=== PATIENT | female | born 1975 | race Caucasian/White ===

== ENCOUNTER 2016-02-24 20:18 | Emergency (ER) | payer BC ==
[2016-02-24 21:01] VITALS: BP 145/98
--- NOTE | 2016-02-24 21:27 | UC ---
Skin Complaint HPI - HPI Summary HPI Summary: The patient comes in today for: 1. Right lower leg swelling. Onset: 3-4 hours ago. Palliative/provocative: Nothing makes it better or worse. Quality: Ache. Region: Medial and posterior calf. Severity: 02/26 Time: Constant. Associated symptoms: Injury: None. Previous: No previous problems with the right lower leg. Blood clots: None. Cancer: She had thyroid cancer diagnosed in 2008. * - History of Current Complaint Chief Complaint: UCLowerExtremity Time Seen by Provider: 02/24/16 21:11 Stated Complaint: BUMP ON CALF,KNEE PAIN Hx Obtained From: Patient Hx Last Menstrual Period: 1 WEEK AGO ?: No - Allergy/Home Medications Allergies/Adverse Reactions: Allergies Allergy/AdvReac Type Severity Reaction Status Date / Time Tofacitinib [From Xeljanz] Allergy Severe HIVES, Verified 02/24/16 21:01 DIARRHEA Sulfamethoxazole Allergy Hives Verified 02/24/16 21:01 w/Trimethoprim [From Bactrim] Home Medications: Home Medications Amitriptyline TAB* [Elavil TAB*] 50 mg PO DAILY 02/24/16 [History Confirmed 09/02] Dextromethorphan-Phenylephrine [Vicks Dayquil Cold & Flu 10-5-325 mg/15Ml] PRN 02/24/16 [History] predniSONE TAB* [Deltasone TAB*] 10 mg PO BID 02/24/16 [History Confirmed ] Review of Systems Constitutional: Negative Skin: Negative Eyes: Negative ENT: Negative Respiratory: Negative Cardiovascular: Negative Gastrointestinal: Negative Genitourinary: Negative Musculoskeletal: Calf Tenderness, Myalgia All Other Systems Reviewed And Are Negative: Yes PMH/Surg Hx/FS Hx/Imm Hx Previously Healthy: No - Fibromyalgia, rheumatoid arthritis, thyroid cancer. Endocrine History Of: Reports: Thyroid Disease - Thyroidectomy Denies: Diabetes, Hyperthyroidism, Hypothyroidism, Dyslipidemia Cardiovascular History Of: Denies: Cardiac Disorders, Hypertension, Pacemaker/ICD, Myocardial Infarction , Congestive Heart Failure, Atrial Fibrillation, Deep Vein Thrombosis, Bleeding Disorders Respiratory History Of: Denies: COPD, Asthma, Bronchitis, Pneumonia, Pulmonary Embolism GI/ History Of: Denies: Gastroesophageal Reflux, Ulcer, Gastrointestinal Bleed, Gall Bladder Disease, Kidney Stones, Diverticulitis, Renal Disease, Urosepsis Neurological History Of: Denies: TIA, CVA, Dementia, Seizures, Migraine Psychological History Of: Denies: Anxiety, Depression, Bipolar Disorder, Schizophrenia, Post Traumatic Stress Disorder Cancer History Of: Denies: Lung Cancer, Colorectal Cancer, Breast Cancer, Prostate Cancer, Cervical Cancer Other History Of: Negative For: HIV, Hepatitis B, Hepatitis C, Anticoagulant Therapy - Surgical History Surgical History: Yes Surgery Procedure, Year, and Place: Rt SHOULDER. THYROIDECTOMY - Family History Known Family History: Positive: Cardiac Disease, Hypertension - Social History Occupation: Employed Full-time Alcohol Use: Occasionally Substance Use Type: None Smoking Status (MU): Never Smoked Tobacco Physical Exam Triage Information Reviewed: Yes Appearance: Well-Appearing, No Pain Distress, Well-Nourished Vital Signs: Initial Vital Signs Temp 97.7 F 02/24/16 20:52 Pulse 129 02/24/16 20:52 Resp 18 02/24/16 20:52 BP 145/98 02/24/16 20:52 Pulse Ox 96 02/24/16 20:52 Vital Signs Reviewed: Yes Eyes: Positive: Conjunctiva Clear. Negative: Discharge ENT: Positive: Hearing grossly normal. Negative: Pharyngeal erythema, Nasal congestion, Nasal drainage, TM bulging, TM dull, TM red, Tonsillar swelling, Tonsillar exudate Dental: Negative: Gross Decay/Caries @, Dental Fracture @ Neck: Positive: Supple, Nontender, No Lymphadenopathy. Negative: Nuchal Rigidity Respiratory: Positive: Lungs clear, No respiratory distress, No accessory muscle use. Negative: Crackles, Wheezing Cardiovascular: Positive: RRR, No Murmur Abdomen Description: Positive: Nontender, No Organomegaly. Negative: Distended , Guarding Musculoskeletal: Positive: Strength Intact, ROM Intact, Other: - Right calf: She has swelling and tenderness of the medial calf. She also has pain in the posterior right calf, but most of the pain is of the medial calf. She also has some posterior right knee tenderness with palpation and upper right inner thigh pain. Calf circumference at 24 cm superior to the medial malleolus: Right: 42 cm Left: 40 Neurological: Positive: Alert, Muscle Tone Normal Psychological: Positive: Age Appropriate Behavior, Consolable Skin: Negative: rashes, breakdown Course/Dx - Course Course Of Treatment: Patient was told that I was concerned that she may have a DVT, but since we don't have ultrasound, she would have to go to the ER for evaluation. She agreed, but by private car. - Diagnoses Provider Diagnoses: right calf tenderness, swelling. - Physician Notification/Consults Discussed Patient Care With: Dr. Hair Time Discussed With Above Provider: 21:44 Discharge - Discharge Plan Condition: Stable Disposition: AGAINST MEDICAL ADVICE Additional Instructions: The patient was told to go directly to the ER.
== END 2016-02-24 21:53 | disposition left against medical advice (07) ==
LOC: UCEAST 20:18
DX: R60.0 Localized edema (principal); M79.661 Pain in right lower leg; Z88.2 Allergy status to sulfonamides; Z88.8 Allergy status to other drugs, medicaments and biological substances
CPT/HCPCS: 99212; G0463

== ENCOUNTER 2016-02-24 22:03 | Emergency (ER) | payer BC ==
--- NOTE | 2016-02-24 22:19 | ED ---
Lower Extremity - HPI Summary HPI Summary: Patient presented to [facility] with swelling in her right calf that she noticed today. She does not remember any trauma to the calf, and she says it's uncomfortable but not necessarily painful. She notices it most when she is on her tiptoes. She denies warmth, redness, SOB, CP or dizziness. She recently had one of her RA medications changed and feels like she's had some side effects but doesn't know if this is related. She has had a cold with congestion. No fever, or N/T. No previous blood clots, smoking or BC. - History of Current Complaint Chief Complaint: EDExtremityLower Stated Complaint: XFER FROM EAST Time Seen by Provider: 02/24/16 22:12 Hx Obtained From: Patient Hx Last Menstrual Period: 1 WEEK AGO Mechanism Of Injury: Unknown Onset of Pain: Hours Onset/Duration: Still Present Severity Initially: Mild Severity Currently: Mild Pain Intensity: 0 Timing: Constant Location: Is Discrete @ - right medial mid calf Character Of Pain: Dull Associated Signs And Symptoms: Positive: Swelling Aggravating Factor(s): Other - going up on her toes Alleviating Factor(s): Rest Able to Bear Weight: Yes - Allergies/Home Medications Allergies/Adverse Reactions: Allergies Allergy/AdvReac Type Severity Reaction Status Date / Time Tofacitinib [From Xeljanz] Allergy Severe HIVES, Verified 02/24/16 21:01 DIARRHEA Sulfamethoxazole Allergy Hives Verified 02/24/16 21:01 w/Trimethoprim [From Bactrim] PMH/Surg Hx/FS Hx/Imm Hx Endocrine/Hematology History: Reports: Hx Thyroid Disease - Thyroidectomy Denies: Hx Anticoagulant Therapy, Hx Diabetes Cardiovascular History: Denies: Hx Congestive Heart Failure, Hx Deep Vein Thrombosis, Hx Hypertension , Hx Myocardial Infarction, Hx Pacemaker/ICD Respiratory History: Denies: Hx Asthma, Hx Chronic Obstructive Pulmonary Disease (COPD), Hx Lung Cancer, Hx Pneumonia, Hx Pulmonary Embolism GI History: Denies: Hx Gall Bladder Disease, Hx Gastrointestinal Bleed, Hx Ulcer, Hx Urosepsis History: Denies: Hx Kidney Stones, Hx Renal Disease Musculoskeletal History: Reports: Hx Rheumatoid Arthritis Denies: Hx Osteoporosis Sensory History: Denies: Hx Hearing Aid Neurological History: Denies: Hx Dementia, Hx Migraine, Hx Seizures, Hx Transient Ischemic Attacks (TIA) Psychiatric History: Denies: Hx Anxiety, Hx Depression, Hx Panic Disorder, Hx Schizophrenia, Hx Bipolar Disorder - Cancer History Cancer Type, Location and Year: THYROID - REMOVED Hx Chemotherapy: No Hx Radiation Therapy: No - Surgical History Surgery Procedure, Year, and Place: Rt SHOULDER. THYROIDECTOMY Infectious Disease History: No Infectious Disease History: Denies: Traveled Outside the [place] in Last 30 Days - Family History Known Family History: Positive: None, Cardiac Disease, Hypertension - Social History Occupation: Employed Full-time Lives: With Family Alcohol Use: Occasionally Substance Use Type: Reports: None Smoking Status (MU): Never Smoked Tobacco Review of Systems Negative: Fever Negative: Erythema Negative: Chest Pain Negative: Shortness Of Breath Positive: Myalgia, Edema - right calf. Negative: Decreased ROM All Other Systems Reviewed And Are Negative: Yes Physical Exam Triage Information Reviewed: Yes Vital Signs On Initial Exam: Initial Vitals Temp Pulse Resp BP Pulse Ox 97.4 F 114 16 154/90 100 02/24/16 22:05 02/24/16 22:05 02/24/16 22:05 02/24/16 22:05 02/24/16 22:05 Vital Signs Reviewed: Yes Appearance: Positive: Well-Appearing, No Pain Distress, Obese Skin: Positive: Warm, Skin Color Reflects Adequate Perfusion, Dry, Soft Head/Face: Positive: Normal Head/Face Inspection Eyes: Positive: EOMI, ISABELLA, Conjunctiva Clear Respiratory/Lung Sounds: Positive: Breath Sounds Present Cardiovascular: Positive: Tachycardia Musculoskeletal: Positive: Strength/ROM Intact - 5/5 strength with ankle flex/ extension, Pain @ - mild TTP over right mid medial calf, Edema Right - right calf measures 18.25 inches, left calf measures 16.75 Neurological: Positive: Sensory/Motor Intact, Alert, Oriented to Person Place, Time, NV Bundle Intact Distally, Abnormal Gait - mildly antalgic gait Psychiatric: Positive: Affect/Mood Appropriate AVPU Assessment: Alert Diagnostics - Vital Signs Vital Signs Temp Pulse Resp BP Pulse Ox 02/24/16 22:05 97.4 F 114 16 154/90 100 - Laboratory Lab Statement: Any lab studies that have been ordered have been reviewed, and results considered in the medical decision making process. - Ultrasound No standard instances Ultrasound Interpretation: Positive (See Comments) Ultrasound Interpretation Completed By: Radiologist - 14.2 x 5 x 3.5cm area of loculated fluid Lower Extremity Course/Dx - Diagnoses Differential Diagnosis/HQI/PQRI: Positive: Arthritis, Bursitis, Cellulitis, Contusion, DVT, Gout, Phlebitis, Puncture Wound, Sprain, Strain Provider Diagnoses: Swelling of calf - Physician Notifications Discussed Care of Patient With: Dr. Contreras, ED attending. Discharge - Discharge Plan Condition: Stable Disposition: HOME Patient Education Materials: Leg Edema (ED) Referrals: Sena Santana MD [Primary Care Provider] - Additional Instructions: Please follow-up with your primary care provider this week for evaluation and possible referral to a specialist. To reduce swelling, elevate your leg above your heart, ice and apply compression with an lucien bandage. You can reduce swelling with ibuprofen as well. Return to the emergency department if your symptoms worsen.
--- NOTE | 2016-02-24 22:48 | RAD ---
HISTORY: Right calf swelling COMPARISONS: None relevant TECHNIQUE: Multiple transverse and longitudinal ultrasound images were obtained of the right lower extremity from the level of the common femoral vein inferiorly through to the infrapopliteal veins using grayscale, color Doppler, and spectral Doppler imaging with and without compression and with augmentation. Comparison images were obtained of the contralateral common femoral vein. FINDINGS: VEINS: The venous system of the right lower extremity is compressible throughout its course, with normal flow on color Doppler imaging and normal response to augmentation on spectral Doppler imaging. SOFT TISSUES: Unremarkable. OTHER FINDINGS: None. IMPRESSION: NO RIGHT LOWER EXTREMITY DEEP VEIN THROMBOSIS
--- NOTE | 2016-02-24 23:01 | RAD ---
HISTORY: Lump on leg COMPARISONS: None TECHNIQUE: Multiple transverse and longitudinal ultrasound images were obtained of the right medial calf in the area of palpable abnormality using grayscale and color Doppler imaging. FINDINGS: There is a heterogeneously hypoechoic lobulated collection deep to the subcutaneous fascia along the area of palpable abnormality measuring 14.2 x 5 x 3.5 cm in size. There is no internal vascularity. IMPRESSION: LOBULATED 14.2 CM COLLECTION OF THE AREA OF PALPABLE ABNORMALITY. THIS MAY REPRESENT A COMPLEX FLUID COLLECTION, SUCH A HEMATOMA, VERSUS A SOLID LESION. IN THE ABSENCE OF A HISTORY OF TRAUMA, CONSIDER FURTHER EVALUATION WITH TISSUE SAMPLING.
[2016-02-24 23:30] VITALS: BP 127/76
== END 2016-02-24 23:29 | disposition home or self-care (01) ==
LOC: ED 22:03
DX: R60.0 Localized edema (principal); Z88.2 Allergy status to sulfonamides; Z88.8 Allergy status to other drugs, medicaments and biological substances
CPT/HCPCS: 99282

== ENCOUNTER 2016-06-29 10:13 | Emergency (ER) | payer BC ==
[2016-06-29 11:30] VITALS: BP 151/98
--- NOTE | 2016-06-29 11:42 | UC ---
Abdominal Pain Female HPI - HPI Summary HPI Summary: 2 and 1/2 weeks of a "car sick nauseated feeling" that Zofran does not help--- was able to eat a bagel and gingerale this morning---has also been constipated for 10 days---no fevers---did have an endoscopy that showed gastritis (began Prilosec) Has had a hida scan in the past that was (-) for gal stones - History of Current Complaint Chief Complaint: UCGI Stated Complaint: NAUSEA Time Seen by Provider: 06/29/16 11:21 Hx Obtained From: Patient Hx Last Menstrual Period: 2 1/2 WEEKS AGO ?: No Onset/Duration: Gradual Onset, Lasting Weeks, Still Present, Worse Since - today Timing: Constant Severity Initially: Moderate Severity Currently: Moderate Pain Intensity: 7 Pain Scale Used: 0-10 Numeric Location: Discrete At: RUQ, Epigastric Radiates: No Character: Colicy, Cramping Aggravating Factor(s): Nothing Alleviating Factor(s): Nothing Associated Signs and Symptoms: Positive: Constipation, Nausea Allergies/Adverse Reactions: Allergies Allergy/AdvReac Type Severity Reaction Status Date / Time Tofacitinib [From Xeljanz] Allergy Severe HIVES, Verified 06/29/16 11:21 DIARRHEA Sulfamethoxazole Allergy Hives Verified 06/29/16 11:21 w/Trimethoprim [From Bactrim] PMH/Surg Hx/FS Hx/Imm Hx Previously Healthy: No - RA Endocrine History Of: Reports: Hypothyroidism Denies: Diabetes, Thyroid Disease, Hyperthyroidism, Dyslipidemia Cardiovascular History Of: Denies: Cardiac Disorders, Hypertension, Pacemaker/ICD, Myocardial Infarction , Congestive Heart Failure, Atrial Fibrillation, Deep Vein Thrombosis, Bleeding Disorders Respiratory History Of: Denies: COPD, Asthma, Bronchitis, Pneumonia, Pulmonary Embolism GI/ History Of: Denies: Gastroesophageal Reflux, Ulcer, Gastrointestinal Bleed, Gall Bladder Disease, Kidney Stones, Diverticulitis, Renal Disease, Urosepsis Neurological History Of: Denies: TIA, CVA, Dementia, Seizures, Migraine Psychological History Of: Denies: Anxiety, Depression, Bipolar Disorder, Schizophrenia, Post Traumatic Stress Disorder Cancer History Of: Denies: Lung Cancer, Colorectal Cancer, Breast Cancer, Prostate Cancer, Cervical Cancer Other History Of: Negative For: HIV, Hepatitis B, Hepatitis C, Anticoagulant Therapy - Surgical History Surgical History: Yes Surgery Procedure, Year, and Place: Rt SHOULDER. THYROIDECTOMY. ACID REFLUX - Family History Known Family History: Positive: None, Cardiac Disease, Hypertension - Social History Occupation: Employed Full-time Lives: With Family Alcohol Use: Occasionally Substance Use Type: None Smoking Status (MU): Never Smoked Tobacco Review of Systems Constitutional: Negative Skin: Negative Eyes: Negative ENT: Negative Respiratory: Negative Cardiovascular: Negative Gastrointestinal: Abdominal Pain Genitourinary: Negative Motor: Negative Neurovascular: Negative Musculoskeletal: Negative Neurological: Negative Psychological: Negative All Other Systems Reviewed And Are Negative: Yes Physical Exam Triage Information Reviewed: Yes Appearance: Ill-Appearing, Pain Distress, Obese Vital Signs: Initial Vital Signs Temp 97.0 F 06/29/16 11:23 Pulse 104 06/29/16 11:23 Resp 18 06/29/16 11:23 BP 151/98 06/29/16 11:23 Pulse Ox 97 06/29/16 11:23 Vital Signs Reviewed: Yes Eye Exam: Normal Eyes: Positive: Conjunctiva Clear ENT Exam: Normal ENT: Positive: Normal ENT inspection, Hearing grossly normal, Pharynx normal, TMs normal. Negative: Nasal congestion, Nasal drainage, Tonsillar swelling, Tonsillar exudate, Trismus, Muffled/hoarse voice Dental Exam: Normal Neck exam: Normal Neck: Positive: Supple, Nontender, No Lymphadenopathy Respiratory Exam: Normal Respiratory: Positive: Chest non-tender, Lungs clear, Normal breath sounds, No respiratory distress, No accessory muscle use Cardiovascular Exam: Normal Cardiovascular: Positive: No Murmur, Pulses Normal, Brisk Capillary Refill, Tachycardia Abdominal Exam: Normal Abdomen Description: Positive: Soft, Other: - RUG and mid epigastric pain Bowel Sounds: Positive: Hypoactive Musculoskeletal Exam: Normal Musculoskeletal: Positive: Strength Intact, ROM Intact, No Edema Neurological Exam: Normal Neurological: Positive: Alert, Muscle Tone Normal Psychological Exam: Normal Skin Exam: Normal Abd Pain Female Course/Dx - Course Course Of Treatment: NPO transfer to [facility] – [place], [place] - Differential Dx/Diagnosis Differential Diagnosis: Bowel Obstruction, Constipation, Gall Bladder Disease Provider Diagnoses: Adbominal PAin - Physician Notification/Consults Discussed Patient Care With: Dimitris HUGGINS Time Discussed With Above Provider: 11:45 Instructed by Provider To: Transfer Discharge - Discharge Plan Condition: Guarded Disposition: AGAINST MEDICAL ADVICE Referrals: Sena Santana MD [Primary Care Provider] -
== END 2016-06-29 11:42 | disposition left against medical advice (07) ==
LOC: UCEAST 10:13
DX: R10.9 Unspecified abdominal pain (principal); E03.9 Hypothyroidism, unspecified; Z88.3 Allergy status to other anti-infective agents
CPT/HCPCS: 99212; G0463

== ENCOUNTER 2016-06-29 12:11 | Emergency (ER) | payer BC ==
[2016-06-29] MEDS ORDERED: NS 0.9% 1000 ML* 1,000 ML IV ONE (13:27)
[2016-06-29] MEDS ORDERED: Metoclopramide IV* 5 MG/ML 2 ML VIAL IV ONE (13:27)
[2016-06-29 14:03] LABS: Hematocrit 41 % (35-47); Hemoglobin 13.4 g/dl (12.0-16.0); Mean Corpuscular HGB Conc 33 g/dl (31-36); Mean Corpuscular Hemoglobin 28 pg (27-31); Mean Corpuscular Volume 85 fL (80-97); Mean Platelet Volume 7 um3 (7.4-10.4); Red Blood Count 4.77 10^6/ul (4.0-5.4); Red Cell Distribution Width 16 % (10.5-15); White Blood Count 18.2 10^3/ul (3.5-10.8)
[2016-06-29 14:11] LABS: Urine Bacteria 1+ (Absent)
[2016-06-29 14:17] LABS: Urine Bilirubin Negative (Negative); Urine Glucose Negative (Negative); Urine Nitrite Negative (Negative)
[2016-06-29 14:20] LABS: ALT 16 U/L (7-52); AST 13 U/L (13-39); Alkaline Phosphatase 59 U/L (34-104); Amylase 38 U/L (29-103); Anion Gap 6 mmol/L (2-11); BUN/Creatinine Ratio 8.5 (8-20); Blood Urea Nitrogen 6 mg/dL (6-24); C Reactive Protein 18.76 mg/L (< 5.00); CO2 Carbon Dioxide 27 mmol/L (22-32); Calcium 9.2 mg/dL (8.6-10.3); Chloride 102 mmol/L (101-111); EGFR African American 116.7 (>60); EGFR Non-African American 90.7 (>60); Globulin 3.5 g/dL (2-4); Glucose 111 mg/dL (70-100); Lipase 39 U/L (11.0-82.0); Potassium 3.7 mmol/L (3.5-5.0); Sodium 135 mmol/L (133-145); Total Protein 7.5 g/dL (6.4-8.9)
[2016-06-29 14:22] LABS: Troponin I 0.01 ng/mL (<0.04)
--- NOTE | 2016-06-29 14:23 | ED ---
Abdominal Pain/Female - HPI Summary HPI Summary: Patient is referred to the ED from [facility] for RUQ pain for approximately 2.5 weeks and new onset of nausea the past two days. She took Zofran this AM with minimal relief. She has been evaluated by her PCP x 2 and undergone upper endoscopy with GI three days ago without acute findings. She has lost 5 pounds since the onset of her pain. She is drinking but not eating. Food makes her symptoms mildly better for a short time. She was given a PPI from her GI doctor but has not begun taking the medication. She is constipated but denies fever, chills, vomiting, diarrhea or back pain. No SOB or CP. - History of Current Complaint Chief Complaint: EDAbdPain Stated Complaint: NAUSEA COMMING FROM [facility] Time Seen by Provider: 06/29/16 13:02 Hx Obtained From: Patient, Family/Safety Compliance Specialist Hx Last Menstrual Period: 2 1/2 WEEKS AGO ?: No Onset/Duration: Gradual Onset Timing: Constant Severity Initially: Mild Severity Currently: Moderate Pain Intensity: 2 Location: Discrete At: RUQ - mild Radiates: No Character: Dull Aggravating Factor(s): Nothing Alleviating Factor(s): Nothing Associated Signs and Symptoms: Positive: Constipation, Decreased Appetite, Nausea Allergies/Adverse Reactions: Allergies Allergy/AdvReac Type Severity Reaction Status Date / Time Tofacitinib [From Xeljanz] Allergy Severe HIVES, Verified 06/29/16 11:21 DIARRHEA Sulfamethoxazole Allergy Hives Verified 06/29/16 11:21 w/Trimethoprim [From Bactrim] PMH/Surg Hx/FS Hx/Imm Hx Endocrine/Hematology History: Denies: Hx Anticoagulant Therapy, Hx Diabetes, Hx Thyroid Disease Cardiovascular History: Denies: Hx Congestive Heart Failure, Hx Deep Vein Thrombosis, Hx Hypertension , Hx Myocardial Infarction, Hx Pacemaker/ICD Respiratory History: Denies: Hx Asthma, Hx Chronic Obstructive Pulmonary Disease (COPD), Hx Lung Cancer, Hx Pneumonia, Hx Pulmonary Embolism GI History: Reports: Hx Gastroesophageal Reflux Disease Denies: Hx Gall Bladder Disease, Hx Gastrointestinal Bleed, Hx Ulcer, Hx Urosepsis History: Denies: Hx Kidney Stones, Hx Renal Disease Musculoskeletal History: Reports: Hx Rheumatoid Arthritis Denies: Hx Osteoporosis Sensory History: Denies: Hx Hearing Aid Neurological History: Denies: Hx Dementia, Hx Migraine, Hx Seizures, Hx Transient Ischemic Attacks (TIA) Psychiatric History: Denies: Hx Anxiety, Hx Depression, Hx Panic Disorder, Hx Schizophrenia, Hx Bipolar Disorder - Cancer History Cancer Type, Location and Year: THYROID - REMOVED Hx Chemotherapy: No Hx Radiation Therapy: No - Surgical History Surgery Procedure, Year, and Place: Rt SHOULDER. THYROIDECTOMY. ACID REFLUX Infectious Disease History: Denies: Hx Hepatitis, Hx Human Immunodeficiency Virus (HIV), History Other Infectious Disease, Traveled Outside the [place] in Last 30 Days - Family History Known Family History: Positive: None, Cardiac Disease, Hypertension - Social History Occupation: Employed Full-time Lives: With Family Alcohol Use: Occasionally Substance Use Type: Reports: None Smoking Status (MU): Never Smoked Tobacco Review of Systems Negative: Fever, Chills Negative: Chest Pain Negative: Shortness Of Breath, Cough Positive: Abdominal Pain, Nausea. Negative: Vomiting, Diarrhea Positive: no symptoms reported Negative: Myalgia Negative: Rash, Bruising Negative: Headache All Other Systems Reviewed And Are Negative: Yes Physical Exam Triage Information Reviewed: Yes Vital Signs On Initial Exam: Initial Vitals Temp Pulse Resp BP Pulse Ox 97.1 F 110 20 152/78 98 06/29/16 12:13 06/29/16 12:13 06/29/16 12:13 06/29/16 12:13 06/29/16 12:13 Vital Signs Reviewed: Yes Appearance: Positive: Well-Appearing, Pain Distress, Obese Skin: Positive: Warm, Skin Color Reflects Adequate Perfusion, Dry, Soft Head/Face: Positive: Normal Head/Face Inspection Eyes: Positive: EOMI, ISABELLA, Conjunctiva Clear ENT: Positive: Hearing grossly normal Neck: Positive: Supple, Nontender, No Lymphadenopathy Respiratory/Lung Sounds: Positive: Clear to Auscultation, Breath Sounds Present Cardiovascular: Positive: Tachycardia Abdomen Description: Positive: Soft. Negative: Nontender - TTP RUQ and epigastric region, CVA Tenderness (R), CVA Tenderness (L), Distended, Guarding, McBurney's Point Tenderness Bowel Sounds: Positive: Hypoactive Musculoskeletal: Negative: Edema Left, Edema Right Neurological: Positive: Sensory/Motor Intact, Alert, Oriented to Person Place, Time, NV Bundle Intact Distally, Normal Gait Psychiatric: Positive: Affect/Mood Appropriate AVPU Assessment: Alert - Rebel Coma Scale Coma Scale Total: 15 Diagnostics - Vital Signs Vital Signs Temp Pulse Resp BP Pulse Ox 06/29/16 13:38 97.1 F 110 20 152/78 100 06/29/16 12:13 97.1 F 110 20 152/78 98 - Laboratory Lab Results: Lab Results 06/29/16 06/29/16 Range/Units 13:50 13:50 WBC 18.2 H (3.5-10.8) 10^3/ul RBC 4.77 (4.0-5.4) 10^6/ul Hgb 13.4 (12.0-16.0) g/dl Hct 41 (35-47) % MCV 85 (80-97) fL MCH 28 (27-31) pg MCHC 33 (31-36) g/dl RDW 16 H (10.5-15) % Plt Count 344 (150-450) 10^3/ul MPV 7 L (7.4-10.4) um3 Neut % (Auto) 86.1 H (38-83) % Lymph % (Auto) 8.3 L (25-47) % [place] % (Auto) 5.2 (1-9) % Eos % (Auto) 0.1 (0-6) % Baso % (Auto) 0.3 (0-2) % Absolute Neuts (auto) 15.7 H (1.5-7.7) 10^3/ul Absolute Lymphs (auto) 1.5 (1.0-4.8) 10^3/ul Absolute Monos (auto) 0.9 H (0-0.8) 10^3/ul Absolute Eos (auto) 0 (0-0.6) 10^3/ul Absolute Basos (auto) 0 (0-0.2) 10^3/ul Absolute Nucleated RBC 0.01 10^3/ul Nucleated RBC % 0 Urine Color Pending Urine Appearance Pending Urine pH Pending Ur Specific [place] Pending Urine Protein Pending Urine Ketones Pending Urine Blood Pending Urine Nitrate Pending Urine Bilirubin Pending Urine Urobilinogen Pending Ur Leukocyte Esterase Pending Urine WBC (Auto) Trace(0-5/hpf) (Absent) Urine RBC (Auto) Absent (Absent) Ur Squamous Epith Cells Present H (Absent) Urine Bacteria 1+ H (Absent) Urine Glucose Pending Urine Ascorbic Acid Pending Result Diagrams: 06/29/16 13:50 06/29/16 13:50 Lab Statement: Any lab studies that have been ordered have been reviewed, and results considered in the medical decision making process. - CT No standard instances CT Interpretation: No Acute Changes CT Interpretation Completed By: Radiologist Re-Evaluation - Re-Evaluation First Eval Re-Evaluation Time: 14:30 Change: Improved - decrease in nausea with reglan Second Eval Re-Evaluation Time: 15:15 Change: Improved - the patient had a bowel movement Abdominal Pain Fem Course/Dx - Course Course Of Treatment: Patient's labs and imaging were reviewed from her previous visits. Her results from today were reveiwed with Dr. Kirby. I discussed today' s findings with the patient and her mother, and offered repeat ultrasound of her gall bladder, surgical consult or watchful waiting. The patient decided for watchful waiting. She understands to return to the emergency department if symptoms worsen. Otherwise she will be in touch with her tool drawing checker in two days regarding todays visit. - Diagnoses Differential Diagnosis: Positive: Bowel Obstruction, Constipation, Gall Bladder Disease, Hepatitis, Pancreatitis, Peptic Ulcer Disease, Urinary Tract Infection Provider Diagnoses: Nausea, Abdominal pain - Provider Notifications Discussed Care Of Patient With: Dr. Kirby, ED attending. Discharge - Discharge Plan Condition: Stable Disposition: HOME Prescriptions: Metoclopramide TAB* [Reglan TAB*] 10 mg PO DAILY PRN #15 tab PRN Reason: Nausea Ondansetron ODT TAB* [Zofran 4 MG Odt TAB*] 4 mg PO Q6H PRN #20 tab.odt PRN Reason: Nausea Patient Education Materials: Acute Nausea and Vomiting (ED), Abdominal Pain (ED ) Referrals: Sena Santana MD [Primary Care Provider] - Additional Instructions: Please take one Reglan tab nightly for nausea. Use Zofran for nausea not controlled by the Reglan. Drink extra fluids and eat well. Call your G.I. specialist Friday to discuss today's visit. Return to the emergency department if you develop a fever of 100.4 or greater, or symptoms worsen.
[2016-06-29] MEDS ORDERED: Iohexol 300* (CONTRAST) 10 ML SDV IV ONE (14:29)
--- NOTE | 2016-06-29 14:58 | RAD ---
INDICATION: Right upper quadrant and periumbilical pain and nausea. COMPARISON: There are no prior studies available for comparison. TECHNIQUE: A CT scan of the abdomen and pelvis was performed with intravenous and oral contrast following intravenous injection of 127 ml of Omnipaque 300 nonionic contrast. Contiguous axial sections were obtained from the lung bases through the symphysis pubis. Images were reconstructed in the coronal and sagittal planes. FINDINGS: There is mild atelectasis and cystic change present at the right lung base. No pleural effusion is present. The liver and spleen are normal in size. The liver is decreased in attenuation consistent with fatty infiltration. There is a small 0.4 cm hypodense lesion in the posterior segment of the right hepatic lobe which is too small to characterize by CT although likely represents a cyst. No calcified gallstones are seen. The pancreas appears to be within normal limits. The kidneys and adrenal glands are normal in size. No hydronephrosis is seen. There is a 2.5 cm cyst in the lower pole of the right kidney. The aorta is normal in caliber and demonstrates homogeneous contrast opacification. No significant enlarged retroperitoneal lymph nodes are seen. The stomach, small and large bowel appear nondistended. The appendix is within normal limits. There is mild to moderate descending and sigmoid diverticulosis. There is no evidence for diverticulitis or colitis. The uterus is mildly enlarged with several small masses most consistent with leiomyomas. No free intraperitoneal air or fluid is seen. No significant focal osseous abnormality is seen. IMPRESSION: 1. NO EVIDENCE FOR ACUTE FINDING OR CAUSE FOR THE PATIENT'S ABDOMINAL PAIN IS SEEN. 2. HEPATIC STEATOSIS. 3. MILDLY ENLARGED FIBROID UTERUS.
[2016-06-29 16:50] VITALS: BP 127/84
== END 2016-06-29 16:49 | disposition home or self-care (01) ==
LOC: ED 12:11
DX: R10.11 Right upper quadrant pain (principal); K59.00 Constipation, unspecified; R11.0 Nausea
CPT/HCPCS: 36415; 74177; 80053; 81003; 81015; 82150; 83605; 83690; 84484; 84702; 85025; 86140; 87086; 96374; 99282; Q9967

== ENCOUNTER 2016-10-10 18:25 | Emergency (ER) | payer BC ==
--- NOTE | 2016-10-10 18:41 | UC ---
Abdominal Pain Female HPI - HPI Summary HPI Summary: 41 YEAR OLD FEMALE PRESENTS WITH COMPLAINS OF SEVERE ABDOMINAL PAIN, NAUSEA, AND VOMITING. I WILL SEND HER TO THE ER TO RULE OUT OBSTRUCTION. - History of Current Complaint Chief Complaint: UCAbdominalPain Stated Complaint: ABD PAIN Time Seen by Provider: 10/10/16 18:37 Hx Obtained From: Patient Hx Last Menstrual Period: September 09 Onset/Duration: Sudden Onset Severity Initially: Moderate Severity Currently: Moderate Pain Scale Used: 0-10 Numeric - 8 Location: Diffuse Character: Cramping, Dull, Sharp Alleviating Factor(s): Vomiting Allergies/Adverse Reactions: Allergies Allergy/AdvReac Type Severity Reaction Status Date / Time Tofacitinib [From Xeljanz] Allergy Severe HIVES, Verified 10/10/16 19:56 DIARRHEA Sulfamethoxazole Allergy Hives Verified 10/10/16 19:56 w/Trimethoprim [From Bactrim] PMH/Surg Hx/FS Hx/Imm Hx Previously Healthy: Yes Other History Of: Negative For: HIV, Hepatitis B, Hepatitis C, Anticoagulant Therapy - Surgical History Surgical History: Yes Surgery Procedure, Year, and Place: Rt SHOULDER. THYROIDECTOMY. ACID REFLUX - Family History Known Family History: Positive: None, Cardiac Disease, Hypertension - Social History Alcohol Use: Occasionally Substance Use Type: None Smoking Status (MU): Never Smoked Tobacco Review of Systems Constitutional: Negative Skin: Negative Eyes: Negative ENT: Negative Respiratory: Negative Cardiovascular: Negative Gastrointestinal: Abdominal Pain Genitourinary: Negative Motor: Negative Neurovascular: Negative Neurological: Negative Psychological: Negative All Other Systems Reviewed And Are Negative: Yes Physical Exam Triage Information Reviewed: Yes Vital Signs: Initial Vital Signs Temp 37.1 C 10/10/16 18:27 Pulse 104 10/10/16 18:27 Resp 22 10/10/16 18:27 BP 115/93 10/10/16 18:27 Pulse Ox 97 10/10/16 18:27 Eye Exam: Normal ENT Exam: Normal Dental Exam: Normal Neck exam: Normal Neck: Positive: 1 Respiratory Exam: Normal Cardiovascular Exam: Normal Abdominal Exam: Normal Musculoskeletal Exam: Normal Neurological Exam: Normal Psychological Exam: Normal Skin Exam: Normal Abd Pain Female Course/Dx - Differential Dx/Diagnosis Provider Diagnoses: DIFFUSE ABDOMINAL PAIN Discharge - Discharge Plan Condition: Stable Disposition: [facility] Patient Education Materials: Acute Abdominal Pain (ED) Referrals: Sena Santana MD [Primary Care Provider] - Additional Instructions: PLEASE GO TO ER TO RULE OUT OBSTRUCTION .
[2016-10-10] MEDS ORDERED: NS 0.9% 1000 ML* 1,000 ML IV ONE (19:02)
[2016-10-10 19:21] VITALS: BP 119/56
== END 2016-10-10 19:21 | disposition short-term general hospital (02) ==
LOC: UCEAST 18:25
DX: R10.84 Generalized abdominal pain (principal); Z88.2 Allergy status to sulfonamides
CPT/HCPCS: 99213; G0463

== ENCOUNTER 2016-10-10 19:35 | Inpatient (IN) | payer BC ==
[2016-10-10] MEDS ORDERED: NS 0.9% 1000 ML* 1,000 ML IV ONE ×2 (19:46→21:40)
[2016-10-10] MEDS ORDERED: Ondansetron INJ* 2 MG/ML VIAL IV ONE ×2 (19:46→20:46)
[2016-10-10] MEDS ORDERED: Morphine INJ* 4 MG/ML 1 ML SYRINGE IV ONE ×2 (19:56→21:41)
[2016-10-10 20:08] LABS: Hematocrit 39 % (35-47); Hemoglobin 12.9 g/dl (12.0-16.0); Mean Corpuscular HGB Conc 33 g/dl (31-36); Mean Corpuscular Hemoglobin 28 pg (27-31); Mean Corpuscular Volume 85 fL (80-97); Mean Platelet Volume 7 um3 (7.4-10.4); Red Blood Count 4.55 10^6/ul (4.0-5.4); Red Cell Distribution Width 15 % (10.5-15); White Blood Count 15.3 10^3/ul (3.5-10.8)
[2016-10-10 20:26] LABS: ALT 17 U/L (7-52); AST 14 U/L (13-39); Albumin 4.1 g/dL (3.2-5.2); Alkaline Phosphatase 60 U/L (34-104); Anion Gap 9 mmol/L (2-11); BUN/Creatinine Ratio 11.5 (8-20); Blood Urea Nitrogen 10 mg/dL (6-24); C Reactive Protein 63.79 mg/L (< 5.00); CO2 Carbon Dioxide 25 mmol/L (22-32); Calcium 9.2 mg/dL (8.6-10.3); Chloride 100 mmol/L (101-111); EGFR African American 91.8 (>60); EGFR Non-African American 71.4 (>60); Glucose 108 mg/dL (70-100); Lipase 26 U/L (11.0-82.0); Magnesium 1.7 mg/dL (1.9-2.7); Potassium 3.6 mmol/L (3.5-5.0); Sodium 134 mmol/L (133-145); Total Protein 7.1 g/dL (6.4-8.9)
--- NOTE | 2016-10-10 20:31 | ED ---
Albert Szymanski Thomas, scribed for Gennaro Contreras MD on 10/10/16 at 2014 . Abdominal Pain/Female - HPI Summary HPI Summary: The pt is a 41 y/o F [place] [facility]/o bilateral lower abd pain that began two days ago but worsened this AM at 08:00. The pain is described as cramping. The pt rates the pain 9/10. The pain is aggravated by movement and alleviated by nothing. The patient has treated the pain with [employer] INSTALLER. Pt additionally c/ o BRADSHAW and nausea. Pt denies any other complaints at this time. She denies prior episodes of pain like this. PMHx: rheumatoid arthritis, fibromyalgia, thyroid CA , and GERD. PSHx: thyroidectomy. SHx: no smoking, occasional alcohol use, no illicit drug use. LNMP 09/13/16. - History of Current Complaint Chief Complaint: EDAbdPain Stated Complaint: ABD PAIN Time Seen by Provider: 10/10/16 19:44 Hx Obtained From: Patient Hx Last Menstrual Period: September 09 Onset/Duration: Lasting Days - 2, Still Present, Worse Since - today at 08:00 Severity Currently: Severe Pain Intensity: 9 Pain Scale Used: 0-10 Numeric Location: Other - bilateral lower extremity Aggravating Factor(s): Movement Alleviating Factor(s): Nothing Associated Signs and Symptoms: Positive: Nausea, Other: - POS: BRADSHAW; NEG: any other complaints Allergies/Adverse Reactions: Allergies Allergy/AdvReac Type Severity Reaction Status Date / Time Tofacitinib [From Xeljanz] Allergy Severe HIVES, Verified 10/10/16 19:56 DIARRHEA Sulfamethoxazole Allergy Hives Verified 10/10/16 19:56 w/Trimethoprim [From Bactrim] PMH/Surg Hx/FS Hx/Imm Hx Previously Healthy: No Endocrine/Hematology History: Denies: Hx Anticoagulant Therapy, Hx Diabetes, Hx Thyroid Disease Cardiovascular History: Denies: Hx Congestive Heart Failure, Hx Deep Vein Thrombosis, Hx Hypertension , Hx Myocardial Infarction, Hx Pacemaker/ICD Respiratory History: Denies: Hx Asthma, Hx Chronic Obstructive Pulmonary Disease (COPD), Hx Lung Cancer, Hx Pneumonia, Hx Pulmonary Embolism GI History: Reports: Hx Gastroesophageal Reflux Disease Denies: Hx Gall Bladder Disease, Hx Gastrointestinal Bleed, Hx Ulcer, Hx Urosepsis History: Denies: Hx Kidney Stones, Hx Renal Disease Musculoskeletal History: Reports: Hx Rheumatoid Arthritis Denies: Hx Osteoporosis Sensory History: Denies: Hx Hearing Aid Neurological History: Denies: Hx Dementia, Hx Migraine, Hx Seizures, Hx Transient Ischemic Attacks (TIA) Psychiatric History: Denies: Hx Anxiety, Hx Depression, Hx Panic Disorder, Hx Schizophrenia, Hx Bipolar Disorder - Cancer History Cancer Type, Location and Year: THYROID - REMOVED Hx Chemotherapy: No Hx Radiation Therapy: No - Surgical History Surgery Procedure, Year, and Place: Rt SHOULDER. THYROIDECTOMY. ACID REFLUX Infectious Disease History: No Infectious Disease History: Denies: Hx Hepatitis, Hx Human Immunodeficiency Virus (HIV), History Other Infectious Disease, Traveled Outside the [place] in Last 30 Days - Family History Known Family History: Positive: Cardiac Disease, Hypertension - Social History Alcohol Use: Occasionally Substance Use Type: Reports: None Smoking Status (MU): Never Smoked Tobacco Review of Systems Positive: Abdominal Pain - bilateral lower abd, onset two days ago but worse today, cramping, Nausea Positive: Headache All Other Systems Reviewed And Are Negative: Yes Physical Exam Triage Information Reviewed: Yes Vital Signs On Initial Exam: Initial Vitals Temp Pulse Resp BP Pulse Ox 99.9 F 140 16 110/81 96 10/10/16 19:40 10/10/16 19:40 10/10/16 19:40 10/10/16 19:40 10/10/16 19:40 Vital Signs Reviewed: Yes Appearance: Positive: Ill-Appearing, Pain Distress - moderate discomfort Skin: Positive: Warm Head/Face: Positive: Normal Head/Face Inspection Eyes: Positive: ISABELLA ENT: Positive: Hearing grossly normal Neck: Positive: Supple Respiratory/Lung Sounds: Positive: Breath Sounds Present Cardiovascular: Positive: Tachycardia Abdomen Description: Positive: No Organomegaly, Soft, Guarding, Other: - moderate diffuse abd tenderness. Negative: Distended Bowel Sounds: Positive: Hypoactive Musculoskeletal: Positive: Strength/ROM Intact Neurological: Positive: Sensory/Motor Intact, Alert, Oriented to Person Place, Time Psychiatric: Positive: Affect/Mood Appropriate Diagnostics - Vital Signs Vital Signs Temp Pulse Resp BP Pulse Ox 10/10/16 20:02 25 10/10/16 19:50 142 97 10/10/16 19:48 110/81 10/10/16 19:45 99.9 F 140 20 110/81 98 10/10/16 19:40 99.9 F 140 16 110/81 96 - Laboratory Lab Results: Lab Results 10/10/16 Range/Units 17:10 WBC 15.3 H (3.5-10.8) 10^3/ul RBC 4.55 (4.0-5.4) 10^6/ul Hgb 12.9 (12.0-16.0) g/dl Hct 39 (35-47) % MCV 85 (80-97) fL MCH 28 (27-31) pg MCHC 33 (31-36) g/dl RDW 15 (10.5-15) % Plt Count 314 (150-450) 10^3/ul MPV 7 L (7.4-10.4) um3 Neut % (Auto) 89.0 H (38-83) % Lymph % (Auto) 6.7 L (25-47) % [place] % (Auto) 4.1 (1-9) % Eos % (Auto) 0 (0-6) % Baso % (Auto) 0.2 (0-2) % Absolute Neuts (auto) 13.6 H (1.5-7.7) 10^3/ul Absolute Lymphs (auto) 1.0 (1.0-4.8) 10^3/ul Absolute Monos (auto) 0.6 (0-0.8) 10^3/ul Absolute Eos (auto) 0 (0-0.6) 10^3/ul Absolute Basos (auto) 0 (0-0.2) 10^3/ul Absolute Nucleated RBC 0 10^3/ul Nucleated RBC % 0 Result Diagrams: 10/10/16 17:10 10/10/16 17:10 Lab Statement: Any lab studies that have been ordered have been reviewed, and results considered in the medical decision making process. - CT CT Abd/Pel CT Interpretation: Positive (See Comments) - perforated sigmoid diverticulitis without abscess. Small fibroids. Subpleural fibrosis. CT Interpretation Completed By: Radiologist - EKG 19:58 Cardiac Rate: Tachycardia - 139 BPM Abdominal Pain Fem Course/Dx - Diagnoses Provider Diagnoses: Perforated diverticulum - Provider Notifications Discussed Care Of Patient With: Tariq Hawthorne Time Discussed With Above Provider: 01:00 Instructed by Provider To: Admit As Inpatient - I consulted with Dr. Hawthorne, surgery, regarding patient care. He will look at the patient's scans. - Critical Care Time Critical Care Time: 30-74 min Discharge - Discharge Plan Condition: Fair Disposition: ADMITTED TO [facility] Referrals: eSna Santana MD [Primary Care Provider] - The documentation as recorded by the Albert bacon Thomas accurately reflects the service I personally performed and the decisions made by me, Gennaro Contreras MD.
[2016-10-10] MEDS ORDERED: Metoclopramide IV* 5 MG/ML 2 ML VIAL IV ONE (21:40)
[2016-10-10] MEDS ORDERED: Acetaminophen SUPP* 650 MG SUPP PR ONE (21:43)
[2016-10-10] MEDS ORDERED: Iohexol 300* (CONTRAST) 10 ML SDV IV ONE (23:36)
[2016-10-10 23:44] LABS: Urine Bilirubin Negative (Negative); Urine Glucose Negative (Negative); Urine Nitrite Negative (Negative)
[2016-10-11] MEDS ORDERED: NS 0.9% 1000 ML* 1,000 ML IV ONE (01:31)
[2016-10-11] MEDS ORDERED: Ondansetron INJ* 2 MG/ML VIAL IV ONE (01:35)
[2016-10-11] MEDS ORDERED: HYDROmorphone* 1 MG/ML 1 ML SYR IV SLOW PU ONE (01:52)
[2016-10-11] MEDS ORDERED: Ondansetron INJ* 2 MG/ML VIAL IV PRN (03:23)
--- NOTE | 2016-10-11 03:58 | CONSULT ---
Consult Consult: PCP: Clif Santana MD Surgery: Teresa Hawthorne MD Date/Time of Evaluation: 10/11/2016 0300 Reason for Consult: medical management of RA, immunosuppression from chronic steroids, pulmonary fibrosis, mixed collagen vascular disease, & hypothyroidism , and support in a patient with perforated sigmoid diverticulitis HPI: Mrs Case is a 41YO female HX RA on 20mg prednisone daily, mixed collagen vascular disease, & pulmonary fibrosis presenting with 3-4 days of cramping lower abdominal pain which became severe today and associated with N/V, chills, & sweats. Last bowel movement was yesterday described as normal except for being small volume. She denies black or bloody content of the emesis and stool. She denies history of similar. She denies chest pain, SOB, palpitations, & light -headedness. Teresa Hawthorne MD surgery has evaluated her and feels she will very likely need surgery in the near future, but would benefit from further resuscitation prior. 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 [employer]; full code status FamHx: Mother: colon polyps; Father: DM2, diverticulitis; otherwise positive for colon CA ROS: as above, otherwise reviewed and all were negative Constitutional: NAD, normally developed, obese white female vitals: Vital Signs Temp 37.7 C 10/10/16 19:45 Pulse 124 10/11/16 02:45 Resp 21 10/11/16 02:45 BP 124/70 10/11/16 02:45 Pulse Ox 97 10/11/16 02:45 Intake & Output 10/10/16 10/10/16 10/11/16 11:59 23:59 11:59 Intake Total 2005 1100 Balance 2005 1100 Weight 92.986 kg Intake: IV Fluids 2005 1100 HEENM: atraumatic; sclera/conjunctiva: non-icteric/clear; hearing: clinically intact; oropharynx: clear, mucosa tacky Neck: soft tissue: non-tender; thyroid: surgically absent Pulmonary: clear to auscultation bilaterally, good aeration, no accessory muscle use CV: RR/RR, normal S1S2, no carotid bruit, no jugular venous distention, 2+ B DP/ PT, no edema Abdominal: soft, non-distended, moderately diffusely tender with voluntary guarding but no rebound/rigidity, hypoactive bowel sounds, no hepatosplenomegaly or masses, no costovertebral angle tenderness Musculoskeletal: general: grossly intact; gait: stable Integumental: normal appearance and texture of exposed skin Psychiatric orientation: AA&O to PPS affect: anxious mood: cooperative eye contact: fair content: reliable responses: timely insight: fair Testing: Lab Results 10/10/16 10/10/16 10/10/16 Range/Units 17:10 17:10 17:10 WBC 15.3 H (3.5-10.8) 10^3/ul RBC 4.55 (4.0-5.4) 10^6/ul Hgb 12.9 (12.0-16.0) g/dl Hct 39 (35-47) % MCV 85 (80-97) fL MCH 28 (27-31) pg MCHC 33 (31-36) g/dl RDW 15 (10.5-15) % Plt Count 314 (150-450) 10^3/ul MPV 7 L (7.4-10.4) um3 Neut % (Auto) 89.0 H (38-83) % Lymph % (Auto) 6.7 L (25-47) % [place] % (Auto) 4.1 (1-9) % Eos % (Auto) 0 (0-6) % Baso % (Auto) 0.2 (0-2) % Absolute Neuts (auto) 13.6 H (1.5-7.7) 10^3/ul Absolute Lymphs (auto) 1.0 (1.0-4.8) 10^3/ul Absolute Monos (auto) 0.6 (0-0.8) 10^3/ul Absolute Eos (auto) 0 (0-0.6) 10^3/ul Absolute Basos (auto) 0 (0-0.2) 10^3/ul Absolute Nucleated RBC 0 10^3/ul Nucleated RBC % 0 Sodium 134 (133-145) mmol/L Potassium 3.6 (3.5-5.0) mmol/L Chloride 100 L (101-111) mmol/L Carbon Dioxide 25 (22-32) mmol/L Anion Gap 9 (2-11) mmol/L BUN 10 (6-24) mg/dL Creatinine 0.87 (0.51-0.95) mg/dL Est GFR ( Amer) 91.8 (>60) Est GFR (Non-Af Amer) 71.4 (>60) BUN/Creatinine Ratio 11.5 (8-20) Glucose 108 H (70-100) mg/dL Lactic Acid 1.4 (0.5-2.0) mmol/L Calcium 9.2 (8.6-10.3) mg/dL Magnesium 1.7 L (1.9-2.7) mg/dL Total Bilirubin 0.50 (0.2-1.0) mg/dL AST 14 (13-39) U/L ALT 17 (7-52) U/L Alkaline Phosphatase 60 (34-104) U/L C-Reactive Protein 63.79 H (< 5.00) mg/L Total Protein 7.1 (6.4-8.9) g/dL Albumin 4.1 (3.2-5.2) g/dL Globulin 3.0 (2-4) g/dL Albumin/Globulin Ratio 1.4 (1-3) Lipase 26 (11.0-82.0) U/L Beta HCG, Quant < 0.60 mIU/mL Urine Color Urine Appearance Urine pH (5-9) Ur Specific Winn (1.010-1.030) Urine Protein (Negative) Urine Ketones (Negative) Urine Blood (Negative) Urine Nitrate (Negative) Urine Bilirubin (Negative) Urine Urobilinogen (Negative) Ur Leukocyte Esterase (Negative) Urine Glucose (Negative) 10/10/16 Range/Units 23:20 WBC (3.5-10.8) 10^3/ul RBC (4.0-5.4) 10^6/ul Hgb (12.0-16.0) g/dl Hct (35-47) % MCV (80-97) fL MCH (27-31) pg MCHC (31-36) g/dl RDW (10.5-15) % Plt Count (150-450) 10^3/ul MPV (7.4-10.4) um3 Neut % (Auto) (38-83) % Lymph % (Auto) (25-47) % [place] % (Auto) (1-9) % Eos % (Auto) (0-6) % Baso % (Auto) (0-2) % Absolute Neuts (auto) (1.5-7.7) 10^3/ul Absolute Lymphs (auto) (1.0-4.8) 10^3/ul Absolute Monos (auto) (0-0.8) 10^3/ul Absolute Eos (auto) (0-0.6) 10^3/ul Absolute Basos (auto) (0-0.2) 10^3/ul Absolute Nucleated RBC 10^3/ul Nucleated RBC % Sodium (133-145) mmol/L Potassium (3.5-5.0) mmol/L Chloride (101-111) mmol/L Carbon Dioxide (22-32) mmol/L Anion Gap (2-11) mmol/L BUN (6-24) mg/dL Creatinine (0.51-0.95) mg/dL Est GFR ( Amer) (>60) Est GFR (Non-Af Amer) (>60) BUN/Creatinine Ratio (8-20) Glucose (70-100) mg/dL Lactic Acid (0.5-2.0) mmol/L Calcium (8.6-10.3) mg/dL Magnesium (1.9-2.7) mg/dL Total Bilirubin (0.2-1.0) mg/dL AST (13-39) U/L ALT (7-52) U/L Alkaline Phosphatase (34-104) U/L C-Reactive Protein (< 5.00) mg/L Total Protein (6.4-8.9) g/dL Albumin (3.2-5.2) g/dL Globulin (2-4) g/dL Albumin/Globulin Ratio (1-3) Lipase (11.0-82.0) U/L Beta HCG, Quant mIU/mL Urine Color Yellow Urine Appearance Cloudy Urine pH 7.0 (5-9) Ur Specific Winn 1.015 (1.010-1.030) Urine Protein Negative (Negative) Urine Ketones 1+ H (Negative) Urine Blood Negative (Negative) Urine Nitrate Negative (Negative) Urine Bilirubin Negative (Negative) Urine Urobilinogen Negative (Negative) Ur Leukocyte Esterase Negative (Negative) Urine Glucose Negative (Negative) ECG, personally reviewed: sinus tachycardia rate 139, no ischemia CT abd/pel W, personally reviewed: IMPRESSION: Perforated sigmoid diverticulitis without abscess. Small fibroids. Subpleural fibrosis. Impression: 41F HX RA on 20mg prednisone daily, mixed collagen vascular disease , & pulmonary fibrosis presents with sepsis (systolic episodically <10, RR episodically >22, leukocytosis) 2nd ruptured sigmoid diverticulitis DIAGNOSIS & PLAN Primary sepsis 2nd ruptured sigmoid diverticulitis : IV ABX : IVFs : ICU monitoring overnight : pain control : Teresa Hawthorne MD surgery has evaluated in ED and will be admitting : supportive care immunosuppression from 20mg prednisone daily : high risk for adrenal suppression which may be contributing to soft pressures : hydrocortisone 150mg IV x1 followed by 40mg Q8H Secondary pulmonary fibrosis : no acute issues RA : steroids via IV hydrocortisone as above mixed collagen vascular disease : no acute issues : hydrocortisone as above hypothyroidism : convert to IV at 1/2 PO dose daily Admission Rational: inpatient for medical/surgical management of ruptured diverticulitis in a patient at high risk of rapid/terminal decompensation; inappropriate for outpatient setting DVTp: heparin SQ & SCDs Code Status: full HCP: mother Discussion After Dr Hawthorne & my evaluations, nursing notifies me that the patient is requesting transfer to [place]. I spoke with her and her mother informing them that a transfer is not medically necessary as we [place] the capacity [place] [facility] [place] Additionally, any lateral transfer could potentially create a clinically relevant delay in care and deterioration in her condition. As such, an ambulance transfer to [place] is medically inadvisable, would not be covered by insurance, and would be an [id number] expense. They agreed to cover the cost and accept the risks of transfer; therefore, her case was referred back to ED.
[2016-10-11] MEDS ORDERED: Hydrocortisone INJ* 250 MG VIAL IV ONE (05:11)
--- NOTE | 2016-10-11 05:23 | HP ---
CC: Sena Santana MD * HISTORY AND PHYSICAL: DATE OF ADMISSION: 10/11/16 CHIEF COMPLAINT: Lower abdominal pain. HISTORY OF PRESENT ILLNESS: This is a 41-year-old female with known history of rheumatoid arthritis, pulmonary fibrosis, obesity, hypothyroidism, and thyroid cancer, who reports a 4- to 5-day history of crampy lower abdominal pain with progressive severity over that period of time. In the morning of 10/10/16, the patient had very severe left lower quadrant abdominal pain associated with nausea and vomiting and she therefore presented to the Urgent Care and subsequently transferred to the [facility] Emergency Room. The patient also complains of headache that she had this morning. She did have relief from Motrin which she received when she initially came in, although this did not completely relieve her pain. She denies fevers or chills. She has had soft bowel movements without constipation. PAST MEDICAL HISTORY: Significant for mixed collagen vascular disease with rheumatoid arthritis and pulmonary fibrosis. She has a history of thyroid cancer, status post thyroidectomy and a history of hypothyroidism secondary to this. PAST SURGICAL HISTORY: Thyroidectomy and shoulder surgery. MEDICATIONS: 1. Prednisone 20 mg a day. 2. Levothyroxine daily. ALLERGIES: XELJANZ and BACTRIM which causes rash. FAMILY HISTORY: Diabetes, colon polyps, and diverticulitis. SOCIAL HISTORY: She does not smoke. She has some alcoholic beverage a week. She denies any drug use. REVIEW OF SYSTEMS: Constitutional: Denies fevers, chills, or weight loss. HEENT: The headache as reported above. No visual changes, hearing loss, otorrhea or rhinorrhea. 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 Heart: No chest pain. No shortness of breath. No palpitations. GI: As above. She did have a recent GI evaluation by Dr. Basurto with upper endoscopy in June that showed essentially normal findings. : She denies any dysuria or hematuria. Endocrine: As above. Psych: She has reportedly a history of depression. Hematologic: No history of blood clots, easy bruising, or bleeding. PHYSICAL EXAMINATION GENERAL: Well-developed and well-nourished 41-year-old female appears in moderate- to-severe distress, lying in the emergency room stretcher. VITAL SIGNS: Temperature 99.9, heart rate 124, respirations 21, blood pressure 124/70, and O2 sat 97% on room air. Height is 5 feet 4 inches, weight is 205 pounds with BMI of 35.2. HEENT: Normocephalic, atraumatic. Sclerae are anicteric. Mucous membranes appear moist. She has no otorrhea or rhinorrhea. NECK: Symmetrical. No palpable lymphadenopathy. LUNGS: Clear to auscultation bilaterally without wheezes, rales, or rhonchi. HEART: Tachycardic, regular S1 and S2 without murmurs appreciated. ABDOMEN: Obese, without scars. No bowel sounds present. Soft with tenderness in the left lower quadrant greater than right lower quadrant to percussion and by palpation with additional tenderness in the upper mid abdomen. EXTREMITIES: Warm without cyanosis, clubbing, or edema. DIAGNOSTIC STUDIES/LAB DATA: WBC is 15.3, hemoglobin 12.9, hematocrit 39, platelets 314. Chemistries: Sodium 134, potassium 3.6, chloride 100, bicarb 25 , BUN 10, creatinine 0.87, glucose 108, lactate was 1.4, magnesium was 1.7. Total bili 0.5, AST and ALT normal. CRP is 63. Albumin 4. Lipase normal. HCG was normal. Urinalysis was notable for 1+ ketones, otherwise negative. Radiographic data: CT scan abdomen and pelvis images were reviewed. She is noted to have inflammatory changes in the sigmoid colon with a small area of extraperitoneal gas noted in the central pelvis as well as free fluid. IMPRESSION: A 41-year-old female with mixed connective tissue disease/ rheumatoid arthritis, on chronic steroids, now presenting with first episode of acute sigmoid diverticulitis with microperforation and evidence of sepsis. PLAN/RECOMMENDATION: The patient is being admitted to the surgical service. Hospital Medicine is being consulted. She will be kept n.p.o. and she has already been administered Zosyn and we will continue this. She needs aggressive fluid resuscitation and will be closely monitored with low threshold for surgical intervention, likely Chu procedure given her history. IV Dilaudid as needed for pain, and DVT and peptic ulcer prophylaxis. The plan was reviewed with the patient as well as her mother and her sister who accompanied her. All questions were answered. The patient agrees. TIME SPENT: Seventy minutes was spent at bedside and [id number] with the patient for management of her tachycardia and for fluid resuscitation and counseling and coordination of care. [id number]/[facility] #: [id number] SELWYN
[2016-10-11] MEDS: HYDROmorphone* 1 MG/ML 1 ML SYR IV PRN ×6 (05:49→17:39)
[2016-10-11] MEDS ORDERED: NS 0.9% 1000 ML* 1,000 ML IV SCH (06:15)
[2016-10-11] MEDS: Heparin VIAL(*) 5000 UNITS/ML VIAL (FIVE THOUSAND) SUBCUT SCH ×3 (07:04→20:59)
[2016-10-11 07:28] LABS: Hematocrit 35 % (35-47); Hemoglobin 11.4 g/dl (12.0-16.0); Mean Corpuscular HGB Conc 33 g/dl (31-36); Mean Corpuscular Hemoglobin 28 pg (27-31); Mean Corpuscular Volume 84 fL (80-97); Mean Platelet Volume 7 um3 (7.4-10.4); Red Blood Count 4.09 10^6/ul (4.0-5.4); Red Cell Distribution Width 15 % (10.5-15); White Blood Count 18.8 10^3/ul (3.5-10.8)
[2016-10-11 07:39] LABS: BUN/Creatinine Ratio 10.4 (8-20); EGFR African American 124.1 (>60); EGFR Non-African American 96.5 (>60); Potassium 3.3 mmol/L (3.5-5.0)
--- NOTE | 2016-10-11 08:11 | RAD ---
INDICATION: Abdominal pain and fever COMPARISON: CT June 29, 2016 TECHNIQUE: Axial source images were obtained from the hemidiaphragms to the symphysis pubis following administration of oral and intravenous contrast. 124 mL Omnipaque 300 was utilized. Coronal and sagittal reconstructed images were acquired. Lung bases: There is mild chronic appearing basilar interstitial change. Liver: The liver is mildly enlarged with findings of hepatic steatosis. There are no masses. There is no ductal dilatation. Gallbladder: There are no calcified gallstones. There is no evidence of wall thickening or pericholecystic fluid. Spleen: The spleen is normal in size. There are no masses. Pancreas: There is no focal pancreatic mass or ductal dilatation. Adrenal glands: There is no evidence of adrenal mass. Kidneys: The kidneys are normal in size and position. There are prompt nephrograms and there is prompt excretion bilaterally. There is a 2.5 cm lower pole right renal cyst. There is no evidence of nephrolithiasis. Adenopathy: There is no evidence of adenopathy by size criteria. Fluid collections: Mesenteric edema consistent with inflammation at the level of acute diverticulitis of the sigmoid colon (see below). Small amount of free fluid in the dependent portion of pelvis. Vessels:There are no significant atherosclerotic changes involving the aorta. There is no focal aneurysm. The iliac vessels are normal in caliber. The IVC appears normal. GI tract: There are no acute abnormalities of the upper GI tract. There is diverticulosis of the sigmoid colon with inflammatory changes with mucosal edema and mesenteric stranding compatible with acute diverticulitis. Small amount of free air consistent with a localized perforation. There are no additional significant bowel findings. Pelvic organs: There is a fibroid uterus. The right adnexa is normal. There is a small hemorrhagic or involuting left ovarian cyst. Bladder: There are no bladder masses. Abdominal and pelvic soft tissues: The extraperitoneal abdominal and pelvic soft tissues appear normal.. Osseous structures: There are no acute osseous findings. Other: None IMPRESSION: CT FINDINGS OF ACUTE DIVERTICULITIS OF THE SIGMOID COLON WITH ADJACENT INFLAMMATORY CHANGE AND A CONTAINED PERFORATION. NO EVIDENCE OF ABSCESS FORMATION .
--- NOTE | 2016-10-11 08:50 | PN ---
Progress Note - Progress Note Date of Service: 10/11/16 SOAP: Subjective: Pain better controlled and no nausea at present. She feels better overall. Objective: Vital Signs Temp 97.5 F 10/11/16 07:47 Pulse 118 10/11/16 07:15 Resp 18 10/11/16 08:31 BP 127/96 10/11/16 07:15 Pulse Ox 94 10/11/16 07:15 Lying comfortably in ICU bed. Abd: obese; soft; tender in BLQ and epigastrium to percussion, improved. Lab reviewed. WBC=18K; lactate 0.8 Assessment: Acute sigmoid diverticulitis with microperf; chronic steroids. Hemodynamically stable but tachycardic. Plan: Keep NPO. Continue IV abx. Will hold off on OR for now, but monitor closely for deterioration. Appreciate CCM management and will continue ICU. Plan d/w patient and mother. ESTELA will cover me this weekend.
[2016-10-11] MEDS: Levothyroxine INJ* 100 MCG/5 ML VIAL IV SCH (09:55)
--- NOTE | 2016-10-11 15:01 | PN ---
Critical Care Services: 41 yo female admitted earlier today with sigmoid diverticulitis complicated by microperforation(s). The patient is being treated conservatively with antibiotics (PIP/TAZO) and has done well today. Has been afebrile and hemodynamically stable. Pain is being controlled with low-dose opioids. Vital Signs: Temp Pulse Resp BP SpO2 FiO2 98.1 F 97 17 128/77 94 Physical Exam: Gen:Resting comfortably Lungs: clear Abdomen: Not distended. guarding in RLQ. No rebound. Extremities:Warm. No cyanosis or edema Fluid Balance (Past 24 Hours): 10/12/16 06:59 Intake Total 1093 Output Total 1400 Balance -307 Weight 214 lb Intake: IV Fluids 1093 Antibiotics 94 LR 999 Output: Urine 1400 Labs: 10/11/16 10/11/16 07:04 07:04 WBC 18.8 H RBC 4.09 Hgb 11.4 L Hct 35 Plt Count 260 Sodium 134 Potassium 3.3 Chloride 105 Carbon Dioxide 21 Anion Gap 8 BUN 7 Creatinine 0.67 Glucose 109 Lactic Acid 0.8 Calcium 8.0 L Studies: None today. Nutrition: NPO Impression: Doing well with conservative management. Plan: Monitor vital signs, urine output, and serial leukocyte and lactate levels. Use stress-dose hydrocortisone. Critical Care Time: 40 minutes (not incuding time spent in discussion with surgery service and with parents).
[2016-10-11 15:15] LABS: BUN/Creatinine Ratio 10.8 (8-20); Calcium 8.3 mg/dL (8.6-10.3); EGFR African American 128.6 (>60); Potassium 3.8 mmol/L (3.5-5.0)
[2016-10-11] MEDS: Hydrocortisone INJ* 100 MG VIAL IV SCH ×2 (15:24→21:01)
[2016-10-11] MEDS ORDERED: Magnesium Sulfate 2 GM IV* 2 GM/50 ML BAG IVPB ONE (15:43)
[2016-10-12] MEDS: Hydrocortisone INJ* 100 MG VIAL IV SCH ×3 (06:04→22:18)
[2016-10-12] MEDS: Levothyroxine INJ* 100 MCG/5 ML VIAL IV SCH (06:04)
[2016-10-12] MEDS: Heparin VIAL(*) 5000 UNITS/ML VIAL (FIVE THOUSAND) SUBCUT SCH ×3 (06:04→22:29)
[2016-10-12 06:29] LABS: Hematocrit 30 % (35-47); Hemoglobin 10.1 g/dl (12.0-16.0); Mean Corpuscular HGB Conc 34 g/dl (31-36); Mean Corpuscular Hemoglobin 29 pg (27-31); Mean Corpuscular Volume 85 fL (80-97); Mean Platelet Volume 7 um3 (7.4-10.4); Red Blood Count 3.54 10^6/ul (4.0-5.4); Red Cell Distribution Width 15 % (10.5-15); White Blood Count 16.2 10^3/ul (3.5-10.8)
[2016-10-12 06:40] LABS: BUN/Creatinine Ratio 12.1 (8-20); Calcium 8.5 mg/dL (8.6-10.3); EGFR African American 146.6 (>60); Potassium 3.5 mmol/L (3.5-5.0)
--- NOTE | 2016-10-12 10:16 | PN ---
Critical Care Services: Patient did very well overnight, and continues to be afebrile. Also denies abdominal pain this AM. Seen by General Surgery (Dr. Calles) this AM. Vital Signs: Temp Pulse Resp BP SpO2 FiO2 98.7 F 72 17 119/79 97 Physical Exam: Gen:Resting comfortably in bed Abdomen: Not distended. Tenderness to deep palpation in LLQ - No rebound. Extremities: Warm. No cyanosis or edema Fluid Balance (Past 24 Hours): 10/12/16 06:59 Intake Total 3158 Output Total 2700 Balance 458 Weight 213 lb Intake: IV Fluids 3041 LR 2866 NS 48 Zosyn 127 IVPB 117 LR 55 Zosyn 62 Oral 0 Output: Urine 2700 Other: Date of Last Bowel 10/12/16 Movement # Bowel Movements 1 Estimated Stool Amount Large Labs: 10/12/16 06:00 Sodium 137 Potassium 3.5 Chloride 108 Carbon Dioxide 24 Anion Gap 5 BUN 7 Creatinine 0.58 Glucose 92 Lactic Acid 0.6 Calcium 8.5 L 10/12/16 06:00 WBC 16.2 H Hgb 10.1 L Hct 30 L Plt Count 244 Studies: None today Nutrition: NPO Impression: Doing well with conservative management of diverticulitis with perforation of sigmoid colon. Plan: 1. Start oral feeding. 2. Begin ambulation 3. Transfer out of ICU
--- NOTE | 2016-10-12 10:22 | PN ---
Progress Note - Progress Note Date of Service: 10/12/16 SOAP: Subjective: She continues to feel better-no abdominal pain, no nausea. She has had several loose bowel movements No SOB Objective: Temp Pulse Resp BP Pulse Ox 98.7 F 72 17 119/79 97 10/12/16 07:45 10/12/16 10:01 10/12/16 10:03 10/12/16 10:00 10/12/16 10:01 Intake & Output 10/10/16 10/11/16 10/12/16 10/13/16 06:59 06:59 06:59 06:59 Intake Total 3161 3158 Output Total 2700 250 Balance 3161 458 -250 Weight 205 lb 213 lb 13.574 oz Intake: IV Fluids 3161 3041 LR 2866 NS 48 Zosyn 127 IVPB 117 LR 55 Zosyn 62 Oral 0 Output: Urine 2700 250 Other: Date of Last Bowel 10/12/16 Movement # Bowel Movements 1 Estimated Stool Amount Large PEX: Comfortable-awake and alert Abd is soft and slightly distended. Bowel sounds are present and are hypoactive. She has mild tenderness on the LLQ without rebound, guarding or mass. No peritoneal irritation Assessment: Sigmoid diverticulitis with localized perforation-improving and without signs of peritonitis or sepsis. She has progressed nicely over the past 36 hours and at present there is no indication for emergent operation and would recommend continued present care. Tachycardia--resolved Rh arthritis on steroids Plan: Continue IV abx OOB Sub Q heparin Sips of clear liquids Decrease stress dose steroids--discussed with Dr. Norwood, he will manage OK for transfer to floor-hospitalist assistance.
[2016-10-12] MEDS: HYDROmorphone* 1 MG/ML 1 ML SYR IV PRN ×2 (12:50→22:15)
[2016-10-13] MEDS: HYDROmorphone* 1 MG/ML 1 ML SYR IV PRN ×2 (03:12→10:27)
[2016-10-13] MEDS: Hydrocortisone INJ* 100 MG VIAL IV SCH ×3 (05:59→20:28)
[2016-10-13] MEDS: Levothyroxine INJ* 100 MCG/5 ML VIAL IV SCH (05:59)
[2016-10-13] MEDS: Heparin VIAL(*) 5000 UNITS/ML VIAL (FIVE THOUSAND) SUBCUT SCH ×3 (06:13→21:51)
--- NOTE | 2016-10-13 10:28 | PN ---
Progress Note - Progress Note Date of Service: 10/13/16 SOAP: Subjective: She continues to feel better-much less pain Tolerating some po Several loose BM's and passing flatus Objective: Temp Pulse Resp BP Pulse Ox 97.6 F 69 16 126/71 98 10/13/16 07:39 10/13/16 07:39 10/13/16 07:50 10/13/16 07:39 10/13/16 07:39 Intake & Output 10/11/16 10/12/16 10/13/16 10/14/16 06:59 06:59 06:59 06:59 Intake Total 3161 3158 1518 1105 Output Total 2700 1050 Balance 3161 979 013 2255 Weight 205 lb 213 lb 13.574 oz Intake: IV Fluids 3161 3041 1021 1000 LR 2866 985 1000 NS 48 16 Zosyn 127 20 IVPB 117 337 105 LR 55 Zosyn 62 337 105 Oral 0 160 Output: Urine 2700 1050 Other: Date of Last Bowel 10/12/16 Movement # Bowel Movements 1 1 Estimated Stool Amount Large Small PEX: Comfortable-awake and alert Lungs are clear Cor is RRR Abd is soft and non-distended. Bowel sounds are present. She has some very mild tenderness in the LLQ without rebound, guarding or peritoneal irritation. Assessment: Sigmoid diverticulitis-localized perforation without sepsis or peritonitis. She continues to improve-no urgent indication for surgery at this point. Rh arthritis on steroids Plan: Wean steroids Clear liquids Check labs in AM
--- NOTE | 2016-10-13 13:48 | PN ---
Subjective Date of Service: 10/13/16 Interval History: HOSPITALIST PROGRESS NOTE Patient seen and examined at bedside. She feels better today, in good spirits. Abdominal pain is controlled, had 3 liquid BMs so far today. Denies nausea, but not hungry. Family History: Unchanged from Admission Social History: Unchanged from Admission Past Medical History: Unchanged from Admission Objective Active Medications: Heparin Sodium (Porcine) (Heparin Vial(*)) 5,000 units SUBCUT Q8HR [facility] Last Admin: 10/13/16 06:13 Dose: 5,000 units Hydrocortisone Sodium Succinate (Solu-Cortef*) 50 mg IV Q8H [facility] Last Admin: 10/13/16 05:59 Dose: 50 mg Hydromorphone HCl (Dilaudid Iv*) 0.5 mg IV Q1H PRN PRN Reason: PAIN - SEVERE Last Admin: 10/13/16 10:27 Dose: 0.5 mg Lactated Ringer's (Lactated Ringers 1000 Ml Bag*) 1,000 mls @ 125 mls/hr IV .PER RATE [facility] Last Admin: 10/13/16 10:23 Dose: 125 mls/hr Piperacillin Sod/Tazobactam (Sod 3.375 gm/ Sodium Chloride) 100 mls @ 200 mls/ hr IVPB 0000,0600,1200,1800 [facility] Last Admin: 10/13/16 12:27 Dose: 200 mls/hr Levothyroxine Sodium (Synthroid Inj*) 60 mcg IV 0600 [facility] Last Admin: 10/13/16 05:59 Dose: 60 mcg Ondansetron HCl (Zofran Inj*) 4 mg IV Q4H PRN PRN Reason: NAUSEA/VOMITING Last Admin: 10/11/16 06:24 Dose: 4 mg Vital Signs 10/13/16 10/13/16 10/13/16 07:50 10:27 12:15 Temperature 97.5 F Pulse Rate 66 Respiratory 16 16 16 Rate Blood Pressure 121/60 (mmHg) O2 Sat by Pulse 100 Oximetry Oxygen Devices in Use Now: None Appearance: Young lady lying in bed in NAD. Eyes: No Scleral Icterus Ears/Nose/Mouth/Throat: Mucous Membranes Moist Neck: Trachea Midline Respiratory: Symmetrical Chest Expansion and Respiratory Effort, Clear to Auscultation Cardiovascular: RRR - Normal S1 and S2 Abdominal: - - Obese, soft, mild LLQ tenderness, NG, NR, BS+ Extremities: No Edema Neurological: Alert and Oriented x 3, NL Muscle Strength and Tone Lines/Tubes/Other Access: Clean, Dry and Intact Peripheral IV Result Diagrams: 10/12/16 06:00 10/12/16 06:00 Assess/Plan/Problems-Billing Assessment: Mrs. Camejo is 41yo F with PMH of RA, mixed connective tissue disorder, pulmonary fibrosis, thyroid CA s/p ressection with post op hypothyroidism, vitamin D deficiency, who presented to ED with c/o abdominal pain, found to have sepsis secondary to perforated diverticulitis. - Patient Problems (1) Sepsis Comment: - Met sepsis criteria on admission with tachycardia and leukocytosis. - Source was diverticulitis. (2) Sigmoid diverticulitis Comment: - Improving. - Remains afebrile with stable VSS, leukocytosis trending down and showing symptomatic improvement. - Surgical input appreciated. - Continue Zosyn #3. - Start clear liquids. (3) Secondary adrenal insufficiency Comment: - Patient on chronic steroids for RA/MCTD. - Taper hydrocortisone down and monitor BP. - Resume prednisone when PO intake improved. (4) Hypothyroidism Comment: - Continue IV levothyroxine. (5) DVT prophylaxis Comment: - SQ heparin. (6) Full code status Status and Disposition: Inpatient for management of sepsis and diverticulitis requiring >48h for stabilization.
[2016-10-14] MEDS: HYDROmorphone* 1 MG/ML 1 ML SYR IV PRN ×2 (01:02→19:57)
[2016-10-14] MEDS: Heparin VIAL(*) 5000 UNITS/ML VIAL (FIVE THOUSAND) SUBCUT SCH ×3 (05:28→21:43)
[2016-10-14] MEDS: Levothyroxine INJ* 100 MCG/5 ML VIAL IV SCH (05:32)
[2016-10-14 05:39] LABS: Hematocrit 28 % (35-47); Hemoglobin 9.7 g/dl (12.0-16.0); Mean Corpuscular HGB Conc 34 g/dl (31-36); Mean Corpuscular Hemoglobin 29 pg (27-31); Mean Corpuscular Volume 85 fL (80-97); Mean Platelet Volume 7 um3 (7.4-10.4); Red Blood Count 3.32 10^6/ul (4.0-5.4); Red Cell Distribution Width 15 % (10.5-15)
[2016-10-14 05:50] LABS: ALT 15 U/L (7-52); Albumin 2.9 g/dL (3.2-5.2); Alkaline Phosphatase 36 U/L (34-104); BUN/Creatinine Ratio 18.2 (8-20); Blood Urea Nitrogen 10 mg/dL (6-24); CO2 Carbon Dioxide 23 mmol/L (22-32); Calcium 8.2 mg/dL (8.6-10.3); Chloride 108 mmol/L (101-111); EGFR African American 155.9 (>60); EGFR Non-African American 121.2 (>60); Globulin 2.5 g/dL (2-4); Glucose 106 mg/dL (70-100); Sodium 138 mmol/L (133-145); Total Protein 5.4 g/dL (6.4-8.9)
[2016-10-14 05:58] LABS: Anion Gap 7 mmol/L (2-11)
[2016-10-14] MEDS: Hydrocortisone INJ* 100 MG VIAL IV SCH ×2 (08:11→20:51)
--- NOTE | 2016-10-14 10:57 | PN ---
Progress Note - Progress Note Date of Service: 10/14/16 SOAP: Subjective: Feels much better. Soft BMs. No N/V. "Sore" but not requesting pain meds. Objective: Vital Signs Temp 97.9 F 10/14/16 07:50 Pulse 48 10/14/16 07:50 Resp 18 10/14/16 08:00 BP 136/64 10/14/16 07:50 Pulse Ox 98 10/14/16 07:50 Gen: NAD Abd: soft, tender in BLQ. No rebound/guarding. Intake & Output 10/13/16 10/14/16 10/14/16 18:59 06:59 18:59 Intake Total 1405 2835 Output Total 575 800 0 Balance 830 2035 0 Intake: IV Fluids 1000 2145 LR 1000 2145 IVPB 105 210 Zosyn 105 210 Oral 300 480 Output: Urine 575 800 0 Laboratory Results - last 24 hr 10/14/16 10/14/16 10/14/16 05:16 05:16 09:46 WBC 9.0 RBC 3.32 L Hgb 9.7 L Hct 28 L MCV 85 MCH 29 MCHC 34 RDW 15 Plt Count 270 MPV 7 L Neut % (Auto) 79.8 Lymph % (Auto) 14.8 L [place] % (Auto) 5.2 Eos % (Auto) 0 Baso % (Auto) 0.2 Absolute Neuts (auto) 7.2 Absolute Lymphs (auto) 1.3 Absolute Monos (auto) 0.5 Absolute Eos (auto) 0 Absolute Basos (auto) 0 Absolute Nucleated RBC 0 Nucleated RBC % 0 Sodium 138 Potassium TNP 3.4 L Chloride 108 Carbon Dioxide 23 Anion Gap 7 BUN 10 Creatinine 0.55 Est GFR ( Amer) 155.9 Est GFR (Non-Af Amer) 121.2 BUN/Creatinine Ratio 18.2 Glucose 106 H Calcium 8.2 L Total Bilirubin 0.30 AST TNP 15 ALT 15 Alkaline Phosphatase 36 Total Protein 5.4 L Albumin 2.9 L Globulin 2.5 Albumin/Globulin Ratio 1.2 Assessment: Diverticulitis with microperf in pt on steroids. Improved clinically. Plan: Cont IV abx for 5-7 days before transition to po. Would expect 3 week total course. Limit to liquids for now. Reimage if sx worsen.
[2016-10-14] MEDS: D5W 1/2 NS KCl 20 Meq 1000 ML* 1,000 ML IV SCH (18:23)
--- NOTE | 2016-10-14 18:57 | PN ---
Subjective Date of Service: 10/14/16 Interval History: Small amount diarrhea about 5 time per day. No arthritic pain, little abd pain. Not hungry. Family History: Unchanged from Admission Social History: Unchanged from Admission Past Medical History: Unchanged from Admission Objective Active Medications: Heparin Sodium (Porcine) (Heparin Vial(*)) 5,000 units SUBCUT Q8HR [facility] Last Admin: 10/14/16 14:20 Dose: 5,000 units Hydrocortisone Sodium Succinate (Solu-Cortef*) 50 mg IV Q12H [facility] Last Admin: 10/14/16 08:11 Dose: 50 mg Hydromorphone HCl (Dilaudid Iv*) 0.5 mg IV Q1H PRN PRN Reason: PAIN - SEVERE Last Admin: 10/14/16 01:02 Dose: 0.5 mg Piperacillin Sod/Tazobactam (Sod 3.375 gm/ Sodium Chloride) 100 mls @ 200 mls/ hr IVPB 0000,0600,1200,1800 [facility] Last Admin: 10/14/16 18:19 Dose: 200 mls/hr Potassium Chloride/Dextrose (D5w 1/2 Ns Kcl 20 Meq 1000 Ml*) 1,000 mls @ 100 mls/hr IV PER RATE [facility] Last Admin: 10/14/16 18:23 Dose: 100 mls/hr Levothyroxine Sodium (Synthroid Inj*) 60 mcg IV 0600 [facility] Last Admin: 10/14/16 05:32 Dose: 60 mcg Ondansetron HCl (Zofran Inj*) 4 mg IV Q4H PRN PRN Reason: NAUSEA/VOMITING Last Admin: 10/11/16 06:24 Dose: 4 mg Vital Signs 10/13/16 10/13/16 10/13/16 19:36 19:37 19:50 Temperature 98.0 F Pulse Rate 52 Respiratory 17 17 13 Rate Blood Pressure 123/58 (mmHg) O2 Sat by Pulse 96 Oximetry 10/13/16 10/14/16 10/14/16 23:35 01:02 02:02 Temperature 98.4 F Pulse Rate 50 Respiratory 16 16 16 Rate Blood Pressure 118/64 (mmHg) O2 Sat by Pulse 99 Oximetry 10/14/16 10/14/16 10/14/16 03:52 03:54 07:50 Temperature 97.6 F 97.6 F 97.9 F Pulse Rate 49 49 48 Respiratory 16 16 16 Rate Blood Pressure 107/52 107/52 136/64 (mmHg) O2 Sat by Pulse 98 98 98 Oximetry 10/14/16 10/14/16 10/14/16 08:00 12:35 15:35 Temperature 98.3 F 97.9 F Pulse Rate 51 52 Respiratory 16 16 16 Rate Blood Pressure 120/60 125/66 (mmHg) O2 Sat by Pulse 99 99 Oximetry Oxygen Devices in Use Now: None Appearance: Alert, sitting on the edge of her bed. In good spirits. Looks comfortable. Eyes: No Scleral Icterus Neck: NL Appearance and Movements; NL JVP, No Thyroid Enlargement, Masses Respiratory: Symmetrical Chest Expansion and Respiratory Effort, Clear to Percussion - Fine rales BL Cardiovascular: NL Sounds; No Murmurs; No JVD, RRR, No Edema, - Extremities: No Edema, No Clubbing, Cyanosis, - Skin: No Rash or Ulcers, No Nodules or Sclerosis, - Neurological: Alert and Oriented x 3, NL Sensation Result Diagrams: 10/14/16 05:16 10/14/16 09:46 Additional Lab and Data: Lab Results 10/10/16 Range/Units 17:10 WBC 15.3 H (3.5-10.8) 10^3/ul RBC 4.55 (4.0-5.4) 10^6/ul Hgb 12.9 (12.0-16.0) g/dl Hct 39 (35-47) % MCV 85 (80-97) fL MCH 28 (27-31) pg MCHC 33 (31-36) g/dl RDW 15 (10.5-15) % Plt Count 314 (150-450) 10^3/ul MPV 7 L (7.4-10.4) um3 Neut % (Auto) 89.0 H (38-83) % Lymph % (Auto) 6.7 L (25-47) % [place] % (Auto) 4.1 (1-9) % Eos % (Auto) 0 (0-6) % Baso % (Auto) 0.2 (0-2) % Absolute Neuts (auto) 13.6 H (1.5-7.7) 10^3/ul Absolute Lymphs (auto) 1.0 (1.0-4.8) 10^3/ul Absolute Monos (auto) 0.6 (0-0.8) 10^3/ul Absolute Eos (auto) 0 (0-0.6) 10^3/ul Absolute Basos (auto) 0 (0-0.2) 10^3/ul Absolute Nucleated RBC 0 10^3/ul Nucleated RBC % 0 Microbiology and Other Data: Microbiology 10/11/16 09:10 Aerobic Blood Culture - Preliminary Blood Venous No Growth Day 2 Anaerobic Blood Culture - Preliminary No Growth Day 2 Blood Culture - Final 10/11/16 07:04 Aerobic Blood Culture - Preliminary Blood Venous No Growth Day 2 Anaerobic Blood Culture - Preliminary No Growth Day 2 Blood Culture - Final 10/11/16 07:04 Nasal Screen MRSA (PCR)(MARIA E) - Final Nasal Mrsa Negative Assess/Plan/Problems-Billing Assessment: Mrs. Camejo is 41yo F with PMH of RA, mixed connective tissue disorder, pulmonary fibrosis, thyroid CA s/p ressection with post op hypothyroidism, vitamin D deficiency, who presented to ED with c/o abdominal pain, found to have sepsis secondary to perforated diverticulitis. - Patient Problems (1) Sigmoid diverticulitis Current Visit: Yes Status: Acute Code(s): K57.32 - DVTRCLI OF LG INT W/O PERFORATION OR ABSCESS W/O BLEEDING SNOMED Code(s): 741621885 Comment: - Improving. - Remains afebrile with stable VSS, leukocytosis trending down and showing symptomatic improvement. - Surgical input appreciated. - Continue Zosyn #3. - Start clear liquids per Dr. Calles. (2) Hypothyroidism Current Visit: Yes Status: Acute Code(s): E03.9 - HYPOTHYROIDISM, UNSPECIFIED SNOMED Code(s): 06264193 Comment: - Continue IV levothyroxine. (3) Secondary adrenal insufficiency Current Visit: Yes Status: Acute Code(s): E27.49 - OTHER ADRENOCORTICAL INSUFFICIENCY SNOMED Code(s): 35091332 Comment: - Patient on chronic steroids for RA/MCTD. Pateint anxious about changing steroid dose as her arthritis is doing well at present 10/14. (4) Rheumatoid arthritis Current Visit: Yes Status: Acute Code(s): M06.9 - RHEUMATOID ARTHRITIS, UNSPECIFIED SNOMED Code(s): 34518184 Comment: Was to taper down to prednisone 10 mg + 7.5 mg when she got ill. Sees a vamp presser in [place]. She gets regular PFT's to follow her pulmonary involvement. Status and Disposition: Inpatient for management of sepsis and diverticulitis requiring >48h for stabilization.
[2016-10-15] MEDS: D5W 1/2 NS KCl 20 Meq 1000 ML* 1,000 ML IV SCH ×2 (05:14→15:57)
[2016-10-15] MEDS: Levothyroxine INJ* 100 MCG/5 ML VIAL IV SCH (05:36)
[2016-10-15] MEDS: HYDROmorphone* 1 MG/ML 1 ML SYR IV PRN ×2 (05:38→18:18)
[2016-10-15] MEDS: Heparin VIAL(*) 5000 UNITS/ML VIAL (FIVE THOUSAND) SUBCUT SCH ×3 (05:40→21:21)
--- NOTE | 2016-10-15 08:21 | PN ---
Progress Note - Progress Note Date of Service: 10/15/16 SOAP: Subjective: Had a good night. Needed pain meds this AM. No N/V. +D. Objective: Vital Signs Temp 98.2 F 10/15/16 03:28 Pulse 50 10/15/16 03:28 Resp 16 10/15/16 06:38 BP 114/59 10/15/16 03:28 Pulse Ox 98 10/15/16 03:28 Gen: non-toxic appearing. Abd: soft, minimal tenderness. Intake & Output 10/14/16 10/15/16 10/15/16 18:59 06:59 18:59 Intake Total 20171 Output Total 950 800 Balance 1068 1571 Intake: IV Fluids 1131 D5W 1/2 NS 20 meq KCL 1131 IVPB 1658 150 LR 1348 Zosyn 310 150 Oral 360 1090 Output: Urine 950 800 Other: Estimated Void Small # Voids 6 Assessment: Diverticulitis with micro perf; chronic steroid. Improving on IV abx. Plan: Full liquids today. Cont IV abx.
[2016-10-15] MEDS: Hydrocortisone INJ* 100 MG VIAL IV SCH ×2 (09:32→21:21)
--- NOTE | 2016-10-15 14:03 | PN ---
Subjective Date of Service: 10/15/16 Interval History: Abdominal pain gradually improving. Small liquid bowel movements every time she empties her bladder. Appetite fair. Family History: Unchanged from Admission Social History: Unchanged from Admission Past Medical History: Unchanged from Admission Objective Active Medications: Heparin Sodium (Porcine) (Heparin Vial(*)) 5,000 units SUBCUT Q8HR [facility] Last Admin: 10/15/16 05:40 Dose: 5,000 units Hydrocortisone Sodium Succinate (Solu-Cortef*) 50 mg IV Q12H [facility] Last Admin: 10/15/16 09:32 Dose: 50 mg Hydromorphone HCl (Dilaudid Iv*) 0.5 mg IV Q1H PRN PRN Reason: PAIN - SEVERE Last Admin: 10/15/16 05:38 Dose: 0.5 mg Piperacillin Sod/Tazobactam (Sod 3.375 gm/ Sodium Chloride) 100 mls @ 200 mls/ hr IVPB 0000,0600,1200,1800 [facility] Last Admin: 10/15/16 12:50 Dose: 200 mls/hr Potassium Chloride/Dextrose (D5w 1/2 Ns Kcl 20 Meq 1000 Ml*) 1,000 mls @ 100 mls/hr IV PER RATE [facility] Last Admin: 10/15/16 05:14 Dose: 100 mls/hr Ondansetron HCl (Zofran Inj*) 4 mg IV Q4H PRN PRN Reason: NAUSEA/VOMITING Last Admin: 10/11/16 06:24 Dose: 4 mg Vital Signs 10/14/16 10/14/16 10/14/16 15:35 19:57 20:00 Temperature 97.9 F Pulse Rate 52 Respiratory 16 17 17 Rate Blood Pressure 125/66 (mmHg) O2 Sat by Pulse 99 Oximetry 10/14/16 10/14/16 10/15/16 20:57 21:01 00:14 Temperature 98.0 F 97.7 F Pulse Rate 51 48 Respiratory 16 17 16 Rate Blood Pressure 101/52 110/59 (mmHg) O2 Sat by Pulse 98 99 Oximetry 10/15/16 10/15/16 10/15/16 03:28 05:38 06:38 Temperature 98.2 F Pulse Rate 50 Respiratory 16 17 16 Rate Blood Pressure 114/59 (mmHg) O2 Sat by Pulse 98 Oximetry 10/15/16 10/15/16 07:57 09:30 Temperature 97.5 F Pulse Rate 50 Respiratory 16 16 Rate Blood Pressure 132/60 (mmHg) O2 Sat by Pulse 100 Oximetry Oxygen Devices in Use Now: None Appearance: Alert, sitting on the edge of her bed. In good spirits. Looks comfortable. Ears/Nose/Mouth/Throat: Clear Oropharnyx, Mucous Membranes Moist Neck: NL Appearance and Movements; NL JVP, No Thyroid Enlargement, Masses Abdominal: NL Sounds; No Tenderness; No Distention, No Hepatosplenomegaly, - Extremities: No Edema, No Clubbing, Cyanosis, - Skin: No Rash or Ulcers, No Nodules or Sclerosis, - Neurological: Alert and Oriented x 3, NL Sensation Result Diagrams: 10/14/16 05:16 10/14/16 09:46 Additional Lab and Data: Lab Results 10/10/16 Range/Units 17:10 WBC 15.3 H (3.5-10.8) 10^3/ul RBC 4.55 (4.0-5.4) 10^6/ul Hgb 12.9 (12.0-16.0) g/dl Hct 39 (35-47) % MCV 85 (80-97) fL MCH 28 (27-31) pg MCHC 33 (31-36) g/dl RDW 15 (10.5-15) % Plt Count 314 (150-450) 10^3/ul MPV 7 L (7.4-10.4) um3 Neut % (Auto) 89.0 H (38-83) % Lymph % (Auto) 6.7 L (25-47) % [place] % (Auto) 4.1 (1-9) % Eos % (Auto) 0 (0-6) % Baso % (Auto) 0.2 (0-2) % Absolute Neuts (auto) 13.6 H (1.5-7.7) 10^3/ul Absolute Lymphs (auto) 1.0 (1.0-4.8) 10^3/ul Absolute Monos (auto) 0.6 (0-0.8) 10^3/ul Absolute Eos (auto) 0 (0-0.6) 10^3/ul Absolute Basos (auto) 0 (0-0.2) 10^3/ul Absolute Nucleated RBC 0 10^3/ul Nucleated RBC % 0 Microbiology and Other Data: Microbiology 10/11/16 09:10 Aerobic Blood Culture - Preliminary Blood Venous No Growth Day 2 Anaerobic Blood Culture - Preliminary No Growth Day 2 Blood Culture - Final 10/11/16 07:04 Aerobic Blood Culture - Preliminary Blood Venous No Growth Day 2 Anaerobic Blood Culture - Preliminary No Growth Day 2 Blood Culture - Final 10/11/16 07:04 Nasal Screen MRSA (PCR)(MARIA E) - Final Nasal Mrsa Negative Assess/Plan/Problems-Billing Assessment: Mrs. Camejo is 41yo F with PMH of RA, mixed connective tissue disorder, pulmonary fibrosis, thyroid CA s/p ressection with post op hypothyroidism, vitamin D deficiency, who presented to ED with c/o abdominal pain, found to have sepsis secondary to perforated diverticulitis. - Patient Problems (1) Sigmoid diverticulitis Current Visit: Yes Status: Acute Code(s): K57.32 - DVTRCLI OF LG INT W/O PERFORATION OR ABSCESS W/O BLEEDING SNOMED Code(s): 060391504 Comment: - Improving. - Remains afebrile with stable VSS, leukocytosis trending down and showing symptomatic improvement. Discussed with Dr. Hawthorne. - Continue Zosyn. Full liquid diet 10/15. - Start clear liquids per Dr. Calles. (2) Hypothyroidism Current Visit: Yes Status: Acute Code(s): E03.9 - HYPOTHYROIDISM, UNSPECIFIED SNOMED Code(s): 49112581 Comment: - Change to PO levothyroxine. (3) Secondary adrenal insufficiency Current Visit: Yes Status: Acute Code(s): E27.49 - OTHER ADRENOCORTICAL INSUFFICIENCY SNOMED Code(s): 17181533 Comment: - Patient on chronic steroids for RA/MCTD. Pateint anxious about changing steroid dose as her arthritis is doing well at present 10/14. (4) Rheumatoid arthritis Current Visit: Yes Status: Acute Code(s): M06.9 - RHEUMATOID ARTHRITIS, UNSPECIFIED SNOMED Code(s): 73674355 Comment: Was to taper down to prednisone 10 mg + 7.5 mg when she got ill. Sees a engagement specialist in [place]. She gets regular PFT's to follow her pulmonary involvement. Status and Disposition: Inpatient for management of sepsis and diverticulitis requiring >48h for stabilization.
[2016-10-16] MEDS: D5W 1/2 NS KCl 20 Meq 1000 ML* 1,000 ML IV SCH ×2 (02:51→14:04)
[2016-10-16] MEDS: HYDROmorphone* 1 MG/ML 1 ML SYR IV PRN ×3 (02:52→21:42)
[2016-10-16] MEDS: Heparin VIAL(*) 5000 UNITS/ML VIAL (FIVE THOUSAND) SUBCUT SCH ×3 (06:00→21:38)
[2016-10-16] MEDS: Levothyroxine TAB* 125 MCG TAB PO SCH (06:00)
[2016-10-16 06:07] LABS: Hematocrit 29 % (35-47); Hemoglobin 9.8 g/dl (12.0-16.0); Mean Corpuscular HGB Conc 34 g/dl (31-36); Mean Corpuscular Hemoglobin 29 pg (27-31); Mean Corpuscular Volume 85 fL (80-97); Mean Platelet Volume 7 um3 (7.4-10.4); Red Blood Count 3.37 10^6/ul (4.0-5.4); Red Cell Distribution Width 15 % (10.5-15); White Blood Count 9.7 10^3/ul (3.5-10.8)
[2016-10-16 06:08] LABS: Add Diff/Slide Review? Slide Review Added; Comments Flag Yes
[2016-10-16 06:33] LABS: BUN/Creatinine Ratio 6.5 (8-20); C Reactive Protein 21.52 mg/L (< 5.00); EGFR African American 135.8 (>60); EGFR Non-African American 105.6 (>60); Potassium 3.4 mmol/L (3.5-5.0)
[2016-10-16] MEDS: Hydrocortisone INJ* 100 MG VIAL IV SCH ×2 (07:58→21:39)
--- NOTE | 2016-10-16 08:47 | PN ---
Progress Note - Progress Note Date of Service: 10/16/16 SOAP: Subjective: Had bloating and pain after eating full liquids yesterday. Feels ok at present. Diarrhea continues. Objective: Vital Signs Temp 97.6 F 10/16/16 07:28 Pulse 66 10/16/16 07:28 Resp 16 10/16/16 08:00 BP 129/75 10/16/16 07:28 Pulse Ox 99 10/16/16 07:28 Gen: lying in bed; NAD. Abd: obese, multiple ecchymotic areas (from heparin injections). Soft; tender in LLQ. Intake & Output 10/15/16 10/16/16 10/16/16 18:59 06:59 18:59 Intake Total 1736 1780 Output Total 2300 1600 500 Balance -564 180 -500 Intake: IV Fluids 946 1165 D5W 1/2 NS 20 meq KCL 736 1165 Zosyn 210 IVPB 215 Zosyn 215 Oral 790 400 Output: Urine 1650 1600 500 Ambriz 650 Other: # Bowel Movements 0 Estimated Stool Amount Small Laboratory Results - last 24 hr 10/16/16 10/16/16 05:32 05:32 WBC 9.7 RBC 3.37 L Hgb 9.8 L Hct 29 L MCV 85 MCH 29 MCHC 34 RDW 15 Plt Count 306 MPV 7 L Neut % (Auto) 80.6 Lymph % (Auto) 13.0 L [place] % (Auto) 5.9 Eos % (Auto) 0.1 Baso % (Auto) 0.4 Absolute Neuts (auto) 7.8 H Absolute Lymphs (auto) 1.3 Absolute Monos (auto) 0.6 Absolute Eos (auto) 0 Absolute Basos (auto) 0 Absolute Nucleated RBC 0 Nucleated RBC % 0 Sodium 138 Potassium 3.4 L Chloride 107 Carbon Dioxide 27 Anion Gap 4 BUN 4 L Creatinine 0.62 Est GFR ( Amer) 135.8 Est GFR (Non-Af Amer) 105.6 BUN/Creatinine Ratio 6.5 L Glucose 191 H Calcium 8.0 L C-Reactive Protein 21.52 H Assessment: Diverticulitis with micro perf; h/o chronic steroids. Day #5 of IV Zosyn. No significant change in status over past 24 hours. Plan: Continue same management. If not further improved on day #7 will reimage.
[2016-10-16] MEDS ORDERED: oxyCODONE TAB* 5 MG TAB PO PRN (08:50)
--- NOTE | 2016-10-16 16:22 | PN ---
Subjective Date of Service: 10/16/16 Interval History: Tolerating full liquid diet better. Still frequent small BM's. Abd pain improved. Family History: Unchanged from Admission Social History: Unchanged from Admission Past Medical History: Unchanged from Admission Objective Active Medications: Heparin Sodium (Porcine) (Heparin Vial(*)) 5,000 units SUBCUT Q8HR [facility] Last Admin: 10/16/16 13:59 Dose: 5,000 units Hydrocortisone Sodium Succinate (Solu-Cortef*) 50 mg IV Q12H [facility] Last Admin: 10/16/16 07:58 Dose: 50 mg Hydromorphone HCl (Dilaudid Iv*) 0.5 mg IV Q1H PRN PRN Reason: PAIN - SEVERE Last Admin: 10/16/16 09:02 Dose: 0.5 mg Piperacillin Sod/Tazobactam (Sod 3.375 gm/ Sodium Chloride) 100 mls @ 200 mls/ hr IVPB 0000,0600,1200,1800 [facility] Last Admin: 10/16/16 12:01 Dose: 200 mls/hr Potassium Chloride/Dextrose (D5w 1/2 Ns Kcl 20 Meq 1000 Ml*) 1,000 mls @ 100 mls/hr IV PER RATE [facility] Last Admin: 10/16/16 14:04 Dose: 100 mls/hr Levothyroxine Sodium (Synthroid Tab*) 125 mcg PO DAILY@0600 [facility] Last Admin: 10/16/16 06:00 Dose: 125 mcg Ondansetron HCl (Zofran Inj*) 4 mg IV Q4H PRN PRN Reason: NAUSEA/VOMITING Last Admin: 10/11/16 06:24 Dose: 4 mg Oxycodone HCl (Roxycodone Tab*) 5 mg PO Q4H PRN PRN Reason: PAIN - MODERATE TO SEVERE Vital Signs 10/15/16 10/15/16 10/15/16 18:18 19:18 19:20 Temperature 97.4 F Pulse Rate 61 Respiratory 16 14 14 Rate Blood Pressure 130/70 (mmHg) O2 Sat by Pulse 97 Oximetry 10/15/16 10/15/16 10/16/16 20:00 23:53 02:52 Temperature 97.7 F Pulse Rate 59 Respiratory 16 18 18 Rate Blood Pressure 116/65 (mmHg) O2 Sat by Pulse 99 Oximetry 10/16/16 10/16/16 10/16/16 03:01 03:52 07:28 Temperature 97.7 F 97.6 F Pulse Rate 60 66 Respiratory 16 14 16 Rate Blood Pressure 118/83 129/75 (mmHg) O2 Sat by Pulse 99 99 Oximetry 10/16/16 10/16/16 10/16/16 08:00 09:02 10:02 Temperature Pulse Rate Respiratory 16 18 16 Rate Blood Pressure (mmHg) O2 Sat by Pulse Oximetry 10/16/16 10/16/16 11:17 15:39 Temperature 97.7 F 98.5 F Pulse Rate 52 57 Respiratory 16 16 Rate Blood Pressure 116/73 135/81 (mmHg) O2 Sat by Pulse 97 98 Oximetry Oxygen Devices in Use Now: None Appearance: Alert, sitting on the edge of her bed. In good spirits. Looks comfortable. Eyes: No Scleral Icterus, PERRLA, - Neck: NL Appearance and Movements; NL JVP, Trachea Midline, No Thyroid Enlargement, Masses, - Respiratory: Symmetrical Chest Expansion and Respiratory Effort, Clear to Percussion, - - BL rales Extremities: No Edema, No Clubbing, Cyanosis, - Skin: No Rash or Ulcers, No Nodules or Sclerosis, - Neurological: Alert and Oriented x 3, NL Sensation Result Diagrams: 10/16/16 05:32 10/16/16 05:32 Additional Lab and Data: Lab Results 10/10/16 Range/Units 17:10 WBC 15.3 H (3.5-10.8) 10^3/ul RBC 4.55 (4.0-5.4) 10^6/ul Hgb 12.9 (12.0-16.0) g/dl Hct 39 (35-47) % MCV 85 (80-97) fL MCH 28 (27-31) pg MCHC 33 (31-36) g/dl RDW 15 (10.5-15) % Plt Count 314 (150-450) 10^3/ul MPV 7 L (7.4-10.4) um3 Neut % (Auto) 89.0 H (38-83) % Lymph % (Auto) 6.7 L (25-47) % [place] % (Auto) 4.1 (1-9) % Eos % (Auto) 0 (0-6) % Baso % (Auto) 0.2 (0-2) % Absolute Neuts (auto) 13.6 H (1.5-7.7) 10^3/ul Absolute Lymphs (auto) 1.0 (1.0-4.8) 10^3/ul Absolute Monos (auto) 0.6 (0-0.8) 10^3/ul Absolute Eos (auto) 0 (0-0.6) 10^3/ul Absolute Basos (auto) 0 (0-0.2) 10^3/ul Absolute Nucleated RBC 0 10^3/ul Nucleated RBC % 0 Microbiology and Other Data: Microbiology 10/11/16 09:10 Aerobic Blood Culture - Preliminary Blood Venous No Growth Day 2 Anaerobic Blood Culture - Preliminary No Growth Day 2 Blood Culture - Final 10/11/16 07:04 Aerobic Blood Culture - Preliminary Blood Venous No Growth Day 2 Anaerobic Blood Culture - Preliminary No Growth Day 2 Blood Culture - Final 10/11/16 07:04 Nasal Screen MRSA (PCR)(MARIA E) - Final Nasal Mrsa Negative Assess/Plan/Problems-Billing Assessment: Mrs. Camejo is 41yo F with PMH of RA, mixed connective tissue disorder, pulmonary fibrosis, thyroid CA s/p ressection with post op hypothyroidism, vitamin D deficiency, who presented to ED with c/o abdominal pain, found to have sepsis secondary to perforated diverticulitis. - Patient Problems (1) Sigmoid diverticulitis Current Visit: Yes Status: Acute Code(s): K57.32 - DVTRCLI OF LG INT W/O PERFORATION OR ABSCESS W/O BLEEDING SNOMED Code(s): 348028034 Comment: - Improving. - Remains afebrile with stable VSS, leukocytosis trending down and showing symptomatic improvement. Discussed with Dr. Hawthorne. - Continue Zosyn. Full liquid diet started 10/15. - Start clear liquids per Dr. Calles. (2) Hypothyroidism Current Visit: Yes Status: Acute Code(s): E03.9 - HYPOTHYROIDISM, UNSPECIFIED SNOMED Code(s): 57671991 Comment: - Change to PO levothyroxine. (3) Secondary adrenal insufficiency Current Visit: Yes Status: Acute Code(s): E27.49 - OTHER ADRENOCORTICAL INSUFFICIENCY SNOMED Code(s): 40779484 Comment: - Patient on chronic steroids for RA/MCTD. Plan on changing back to prednisone 10 mg bid about 10/18. (4) Rheumatoid arthritis Current Visit: Yes Status: Acute Code(s): M06.9 - RHEUMATOID ARTHRITIS, UNSPECIFIED SNOMED Code(s): 52359051 Comment: Was to taper down to prednisone 10 mg + 7.5 mg when she got ill. Plan on changing back to prednisone 10 mg bid about 10/18. Sees a tailer off in [place]. She gets regular PFT's to follow her pulmonary involvement. Status and Disposition: Inpatient for management of sepsis and diverticulitis requiring >48h for stabilization.
[2016-10-17] MEDS: D5W 1/2 NS KCl 20 Meq 1000 ML* 1,000 ML IV SCH ×3 (00:10→22:07)
[2016-10-17] MEDS: Levothyroxine TAB* 125 MCG TAB PO SCH (05:20)
[2016-10-17] MEDS: HYDROmorphone* 1 MG/ML 1 ML SYR IV PRN (05:21)
[2016-10-17] MEDS: Heparin VIAL(*) 5000 UNITS/ML VIAL (FIVE THOUSAND) SUBCUT SCH ×3 (05:28→22:09)
[2016-10-17] MEDS: Hydrocortisone INJ* 100 MG VIAL IV SCH (08:47)
[2016-10-17] MEDS ORDERED: Ibuprofen TAB* 600 MG PO PRN (12:30)
--- NOTE | 2016-10-17 12:47 | PN ---
Progress Note - Progress Note Date of Service: 10/17/16 SOAP: Subjective: She feels she "turned a corner" last night and feels much better today. No more bloating. Pain is mild. No N/V/F/C. Objective: Vital Signs Temp 98.0 F 10/17/16 11:42 Pulse 63 10/17/16 11:42 Resp 16 10/17/16 11:42 BP 138/82 10/17/16 11:42 Pulse Ox 99 10/17/16 11:42 NAD Abd: obese, soft, benign. Intake & Output 10/16/16 10/17/16 10/17/16 18:59 06:59 18:59 Intake Total 1715 1750 1425 Output Total 2100 3100 1400 Balance -385 -1350 25 Intake: IV Fluids 1175 1030 1085 D5W 1/2 NS 20 meq KCL 965 925 980 Zosyn 210 105 105 Oral 540 720 340 Output: Urine 2100 3100 1400 Other: # Bowel Movements 1 0 1 Estimated Stool Amount Small Small Small Assessment: Diverticulitis with micro perf; h/o chronic steroids. Day #6 of IV Zosyn. Doing well. Plan: Will adv diet. Ibuprofen for pain. Check CBC, CRP in AM and will consider D/C on oral abx tomorrow.
--- NOTE | 2016-10-17 16:45 | PN ---
Subjective Date of Service: 10/17/16 Interval History: Pain continues to improves. Still having small liquid stools many times a day. Family History: Unchanged from Admission Social History: Unchanged from Admission Past Medical History: Unchanged from Admission Objective Active Medications: Heparin Sodium (Porcine) (Heparin Vial(*)) 5,000 units SUBCUT Q8HR [facility] Last Admin: 10/17/16 13:53 Dose: 5,000 units Hydrocortisone Sodium Succinate (Solu-Cortef*) 50 mg IV Q12H [facility] Last Admin: 10/17/16 08:47 Dose: 50 mg Hydromorphone HCl (Dilaudid Iv*) 0.5 mg IV Q1H PRN PRN Reason: PAIN - SEVERE Last Admin: 10/17/16 05:21 Dose: 0.5 mg Piperacillin Sod/Tazobactam (Sod 3.375 gm/ Sodium Chloride) 100 mls @ 200 mls/ hr IVPB 0000,0600,1200,1800 [facility] Last Admin: 10/17/16 11:45 Dose: 200 mls/hr Potassium Chloride/Dextrose (D5w 1/2 Ns Kcl 20 Meq 1000 Ml*) 1,000 mls @ 100 mls/hr IV PER RATE [facility] Last Admin: 10/17/16 11:03 Dose: 100 mls/hr Ibuprofen (Motrin Tab*) 600 mg PO Q6H PRN PRN Reason: PAIN Levothyroxine Sodium (Synthroid Tab*) 125 mcg PO DAILY@0600 [facility] Last Admin: 10/17/16 05:20 Dose: 125 mcg Ondansetron HCl (Zofran Inj*) 4 mg IV Q4H PRN PRN Reason: NAUSEA/VOMITING Last Admin: 10/11/16 06:24 Dose: 4 mg Oxycodone HCl (Roxycodone Tab*) 5 mg PO Q4H PRN PRN Reason: PAIN - MODERATE TO SEVERE Vital Signs 10/16/16 10/16/16 10/16/16 19:45 20:10 21:42 Temperature 97.9 F Pulse Rate 62 Respiratory 16 16 16 Rate Blood Pressure 130/81 (mmHg) O2 Sat by Pulse 98 Oximetry 10/16/16 10/16/16 10/17/16 21:50 22:42 00:10 Temperature 97.6 F Pulse Rate 58 Respiratory 16 16 16 Rate Blood Pressure 126/77 (mmHg) O2 Sat by Pulse 99 Oximetry 10/17/16 10/17/16 10/17/16 03:41 05:21 06:21 Temperature 97.9 F Pulse Rate 52 Respiratory 16 16 18 Rate Blood Pressure 118/72 (mmHg) O2 Sat by Pulse 98 Oximetry 10/17/16 10/17/16 10/17/16 07:18 08:00 11:42 Temperature 99.4 F 98.0 F Pulse Rate 59 63 Respiratory 16 16 16 Rate Blood Pressure 127/72 138/82 (mmHg) O2 Sat by Pulse 97 99 Oximetry 10/17/16 15:28 Temperature 97.7 F Pulse Rate 61 Respiratory 16 Rate Blood Pressure 130/72 (mmHg) O2 Sat by Pulse 99 Oximetry Oxygen Devices in Use Now: None Appearance: Alert, sitting on the edge of her bed. In good spirits. Looks comfortable. Respiratory: Symmetrical Chest Expansion and Respiratory Effort, Clear to Percussion - BL basilar rales Cardiovascular: NL Sounds; No Murmurs; No JVD, RRR, No Edema, - Extremities: No Edema, No Clubbing, Cyanosis, - Skin: No Rash or Ulcers, No Nodules or Sclerosis, - Neurological: Alert and Oriented x 3, NL Sensation Result Diagrams: 10/16/16 05:32 10/16/16 05:32 Additional Lab and Data: Lab Results 10/10/16 Range/Units 17:10 WBC 15.3 H (3.5-10.8) 10^3/ul RBC 4.55 (4.0-5.4) 10^6/ul Hgb 12.9 (12.0-16.0) g/dl Hct 39 (35-47) % MCV 85 (80-97) fL MCH 28 (27-31) pg MCHC 33 (31-36) g/dl RDW 15 (10.5-15) % Plt Count 314 (150-450) 10^3/ul MPV 7 L (7.4-10.4) um3 Neut % (Auto) 89.0 H (38-83) % Lymph % (Auto) 6.7 L (25-47) % [place] % (Auto) 4.1 (1-9) % Eos % (Auto) 0 (0-6) % Baso % (Auto) 0.2 (0-2) % Absolute Neuts (auto) 13.6 H (1.5-7.7) 10^3/ul Absolute Lymphs (auto) 1.0 (1.0-4.8) 10^3/ul Absolute Monos (auto) 0.6 (0-0.8) 10^3/ul Absolute Eos (auto) 0 (0-0.6) 10^3/ul Absolute Basos (auto) 0 (0-0.2) 10^3/ul Absolute Nucleated RBC 0 10^3/ul Nucleated RBC % 0 Microbiology and Other Data: Microbiology 10/11/16 09:10 Aerobic Blood Culture - Preliminary Blood Venous No Growth Day 2 Anaerobic Blood Culture - Preliminary No Growth Day 2 Blood Culture - Final 10/11/16 07:04 Aerobic Blood Culture - Preliminary Blood Venous No Growth Day 2 Anaerobic Blood Culture - Preliminary No Growth Day 2 Blood Culture - Final 10/11/16 07:04 Nasal Screen MRSA (PCR)(MARIA E) - Final Nasal Mrsa Negative Assess/Plan/Problems-Billing Assessment: Mrs. Camejo is 41yo F with PMH of RA, mixed connective tissue disorder, pulmonary fibrosis, thyroid CA s/p ressection with post op hypothyroidism, vitamin D deficiency, who presented to ED with c/o abdominal pain, found to have sepsis secondary to perforated diverticulitis. - Patient Problems (1) Sigmoid diverticulitis Current Visit: Yes Status: Acute Code(s): K57.32 - DVTRCLI OF LG INT W/O PERFORATION OR ABSCESS W/O BLEEDING SNOMED Code(s): 174769855 Comment: Tolerating reg diet. Diarrhea d/t pip/karina. (2) Hypothyroidism Current Visit: Yes Status: Acute Code(s): E03.9 - HYPOTHYROIDISM, UNSPECIFIED SNOMED Code(s): 12365358 Comment: Continue levothyroxine. (3) Secondary adrenal insufficiency Current Visit: Yes Status: Acute Code(s): E27.49 - OTHER ADRENOCORTICAL INSUFFICIENCY SNOMED Code(s): 65658105 Comment: - Patient on chronic steroids for RA/MCTD. 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 (4) Rheumatoid arthritis Current Visit: Yes Status: Acute Code(s): M06.9 - RHEUMATOID ARTHRITIS, UNSPECIFIED SNOMED Code(s): 47736457 Comment: Was to taper down to prednisone 10 mg + 7.5 mg when she got ill. Plan as above. Sees a plastic surgery manager in [place]. She gets regular PFT's to follow her pulmonary involvement. Status and Disposition: Inpatient for management of sepsis and diverticulitis requiring >48h for stabilization.
[2016-10-17] MEDS: predniSONE TAB* 10 MG PO SCH (17:32)
[2016-10-18] MEDS: Levothyroxine TAB* 125 MCG TAB PO SCH (05:33)
[2016-10-18] MEDS: Heparin VIAL(*) 5000 UNITS/ML VIAL (FIVE THOUSAND) SUBCUT SCH (05:34)
[2016-10-18 05:51] LABS: Hematocrit 29 % (35-47); Hemoglobin 9.9 g/dl (12.0-16.0); Mean Corpuscular HGB Conc 34 g/dl (31-36); Mean Corpuscular Hemoglobin 29 pg (27-31); Mean Corpuscular Volume 84 fL (80-97); Mean Platelet Volume 7 um3 (7.4-10.4); Red Blood Count 3.44 10^6/ul (4.0-5.4); Red Cell Distribution Width 15 % (10.5-15); White Blood Count 9.9 10^3/ul (3.5-10.8)
[2016-10-18 05:54] LABS: Add Diff/Slide Review? Slide Review Added; Comments Flag Yes
[2016-10-18 07:51] VITALS: BP 129/71
[2016-10-18] MEDS: predniSONE TAB* 10 MG PO SCH (07:56)
--- NOTE | 2016-10-18 08:48 | PN ---
Progress Note - Progress Note Date of Service: 10/18/16 SOAP: Subjective: Mild lower abdominal discomfort, no pain. Tolerating diet without N/V. Slightly more formed stools. Objective: Vital Signs Temp 97.4 F 10/18/16 07:28 Pulse 54 10/18/16 07:28 Resp 18 10/18/16 08:00 BP 129/71 10/18/16 07:28 Pulse Ox 98 10/18/16 07:28 NAD Abd: obese, multiple areas of ecchymosis; soft with mild LLQ tenderness to deep palpation. Intake & Output 10/17/16 10/18/16 10/18/16 18:59 06:59 18:59 Intake Total 2305 2018 Output Total 2700 3825 800 Balance -395 -2508 -797 Intake: IV Fluids 1085 950 D5W 1/2 NS 20 meq KCL 980 950 Zosyn 105 IVPB 328 Zosyn 328 Oral 1220 740 Output: Urine 2700 3825 800 Other: Date of Last Bowel 10/18/16 Movement # Bowel Movements 1 1 1 Estimated Stool Amount Small Medium Small Laboratory Results - last 24 hr 10/18/16 10/18/16 05:41 05:41 WBC 9.9 RBC 3.44 L Hgb 9.9 L Hct 29 L MCV 84 MCH 29 MCHC 34 RDW 15 Plt Count 365 MPV 7 L Neut % (Auto) 74.1 Lymph % (Auto) 17.8 L [place] % (Auto) 7.6 Eos % (Auto) 0.2 Baso % (Auto) 0.3 Absolute Neuts (auto) 7.3 Absolute Lymphs (auto) 1.8 Absolute Monos (auto) 0.8 Absolute Eos (auto) 0 Absolute Basos (auto) 0 Absolute Nucleated RBC 0.01 Nucleated RBC % 0.1 C-Reactive Protein 11.22 H Assessment: Diverticulitis with micro perf; h/o chronic steroids. Day #7 of IV Zosyn. Doing well. Plan: Discharge home today on Cipro/Flagyl for 3 more weeks. Follow up in 1 week. Keep on low residue diet. Steroids as per Hosp/Rheum. Plan on f/u CT as outpt. D/w patient and sister.
--- NOTE | 2016-10-19 03:34 | DS ---
CC: Dr. Sena Santana; Dr. Dale Stubbs [place] * DISCHARGE SUMMARY: DATE OF ADMISSION: 10/11/16 DATE OF DISCHARGE: 10/18/16 ATTENDING SURGEON: Dr. Tariq Hawthorne * (DICTATED BY BHAVNA PRESTON) HOSPITAL COURSE: Please refer to admission history and physical for admission details. The patient was admitted with acute diverticulitis with limited perforation (small amounts of free air by CT). She was given IV Zosyn throughout her hospital stay. She was followed in ICU initially and seen by Critical Care Medicine and then followed by the hospitalists for medical management on the floor. She has gradually improved in terms of pain, white blood cell count, and gradual advancement of diet. At this point, she is having frequent loose stools, though there is currently slightly more form to her stools. She has not required any analgesics in the last 24 hours. She was seen this morning by Dr. Hawthorne. Per his exam, vital signs, temperature 97.4, blood pressure 129/71, pulse 54, respirations 18, room air saturation 98%. PHYSICAL EXAMINATION: Abdomen: Obese, soft with mild left lower quadrant tenderness to deep palpation. LABORATORY DATA: Her CBC as of the morning of discharge, white blood cell count 9900, hemoglobin 9.9. CRP 11.2. IMPRESSION: 1. Diverticulitis with microperforation. 2. Chronic steroids for rheumatoid arthritis. 3. Collagen vascular disease. PLAN: Discharge home today on 3 additional weeks of oral Cipro and Flagyl. She will maintain a low-residue diet with gradual advancement over the next 2 to 4 weeks. She will see Dr. Hawthorne in followup on 10/25/16. He will decide when to repeat a CT scan as an outpatient. She will continue to taper her prednisone as able along with recommendations from her other providers. BHAVNA PRESTON [id number]/[facility] #: [id number] MTDD
== END 2016-10-18 13:03 | disposition home or self-care (01) | DRG 720 ==
LOC: ED 19:35 → ICU 10-11 06:00 → SSU 10-12 10:56
PROVIDERS: ADMIT Hospitalist; ATTEND Surgery
DX: A41.9 Sepsis, unspecified organism (principal); J84.10 Pulmonary fibrosis, unspecified; E27.49 Other adrenocortical insufficiency; K57.20 Diverticulitis of large intestine with perforation and abscess without bleeding; M06.9 Rheumatoid arthritis, unspecified; M35.9 Systemic involvement of connective tissue, unspecified; Z79.52 Long term (current) use of systemic steroids; E66.9 Obesity, unspecified; Z85.850 Personal history of malignant neoplasm of thyroid; E89.0 Postprocedural hypothyroidism; Y83.8 Other surgical procedures as the cause of abnormal reaction of the patient, or of later complication, without mention of misadventure at the time of the procedure; Z88.1 Allergy status to other antibiotic agents; Z88.8 Allergy status to other drugs, medicaments and biological substances; Z72.89 Other problems related to lifestyle; F32.9 Major depressive disorder, single episode, unspecified; R51 Headache; R11.0 Nausea; Z88.2 Allergy status to sulfonamides; K21.9 Gastro-esophageal reflux disease without esophagitis; Z82.49 Family history of ischemic heart disease and other diseases of the circulatory system; E55.9 Vitamin D deficiency, unspecified; Z83.3 Family history of diabetes mellitus; Z80.0 Family history of malignant neoplasm of digestive organs; Z68.36 Body mass index [BMI] 36.0-36.9, adult
CPT/HCPCS: 36415; 74177; 80048; 80053; 80061; 81003; 82306; 83036; 83605; 83690; 83735; 84146; 84439; 84443; 84479; 84550; 84702; 85025; 86140; 86160; 86617; 87040; 87641; 93005; 99213; A9270-GY; G0463; J1170; J1644; J1720; J2270; J2405; J2543; J2765; J3475; J7512; Q9967

== ENCOUNTER 2017-08-11 05:58 | Emergency (ER) | payer BC ==
[2017-08-11] MEDS ORDERED: Metoclopramide IV* 5 MG/ML 2 ML VIAL IV ONE (06:20)
[2017-08-11] MEDS ORDERED: Morphine VIAL* 4 MG/ML VIAL (1 ml vial) IV ONE ×2 (06:20→07:13)
--- NOTE | 2017-08-11 06:48 | ED ---
HPI Cardiac - HPI Summary HPI Summary: Patient is a 41-year-old female with a history of acquired factor VIII inhibitor , diverticulitis, adrenal insufficiency, and rheumatoid arthritis. She states since approximately 11 PM last evening she has been having left-sided flank pain which does not radiate into the abdomen. Prior to this, she had 2 days of light vaginal bleeding which this has subsided immediately before the back pain began. She is a patient of Dr. Anderson's, and sees him weekly. Current medications include 60mg prednisone, 125mg levaquin, Cytoxin 175mg (although last dose was 6 days ago). Dr. Anderson discontinued this medication thinking this medication was causing a reaction of hematuria. She recently began Rituxin infusion 3 days ago. She had a slight reaction of elevated BP, sore throat and chills. They reduced the rate of infusion at the time and she denied any reactions following over the next 2 days. Her next appt is 2 days from today with Dr. Anderson. Primary program technician is in [place] at [facility], Dr. Mcclure. Her diagnoses of Factor VIII inhibitor was recent over the past 2 months. - History of Current Complaint Chief Complaint: EDFlankPain Stated Complaint: BACK PAIN Time Seen by Provider: 08/11/17 06:07 Hx Obtained From: Patient Hx Last Menstrual Period: September 09 Onset/Duration: Started Hours Ago Timing: Constant Initial Severity: Moderate Current Severity: Moderate Pain Intensity: 7 Pain Scale Used: 0-10 Numeric Chest Pain Radiates: No Aggravating Factor(s): Nothing Alleviating Factor(s): Nothing Associated Signs and Symptoms: Positive: Nausea, Other: - left flank pain - Additional Pertinent History Primary Care Physician: GUANAKO - Allergy/Home Medications Allergies/Adverse Reactions: Allergies Allergy/AdvReac Type Severity Reaction Status Date / Time tofacitinib [From Xeljanz] Allergy Severe Hives Verified 08/11/17 06:05 Sulfa (Sulfonamide Allergy Intermediate Hives Verified 08/11/17 06:05 Antibiotics) Home Medications: Home Medications Cyclophosphamide 25 mg PO DAILY 08/11/17 [History Confirmed 08/11/17] Cyclophosphamide 150 mg PO DAILY 08/11/17 [History Confirmed 08/11/17] Levothyroxine TAB* [Synthroid TAB*] 62.5 mcg PO JEAN 08/11/17 [History Confirmed 08/11/17] Levothyroxine TAB* [Synthroid TAB*] 125 mcg PO MOTUWETHFRSA 08/11/17 [History Confirmed 08/11/17] Nystatin SUSPENSION* 5 ml PO QID 08/11/17 [History Confirmed 08/11/17] Omeprazole CAP* [Prilosec CAP* 20 MG] 20 mg PO DAILY 08/11/17 [History Confirmed 08/11/17] predniSONE TAB* [Deltasone 20 MG TAB*] 80 mg PO DAILY 08/11/17 [History Confirmed 08/11/17] PMH/Surg Hx/FS Hx/Imm Hx Previously Healthy: No - factor 8 insufficiency Endocrine/Hematology History: Reports: Hx Thyroid Disease - Thyroid CA and thyroidectomy Denies: Hx Anticoagulant Therapy, Hx Diabetes Cardiovascular History: Denies: Hx Congestive Heart Failure, Hx Deep Vein Thrombosis, Hx Hypertension , Hx Myocardial Infarction, Hx Pacemaker/ICD Respiratory History: Denies: Hx Asthma, Hx Chronic Obstructive Pulmonary Disease (COPD), Hx Lung Cancer, Hx Pneumonia, Hx Pulmonary Embolism GI History: Reports: Hx Diverticulosis, Hx Gastroesophageal Reflux Disease Denies: Hx Gall Bladder Disease, Hx Gastrointestinal Bleed, Hx Ulcer, Hx Urosepsis History: Denies: Hx Dialysis, Hx Kidney Stones, Hx Renal Disease Musculoskeletal History: Reports: Hx Rheumatoid Arthritis Denies: Hx Osteoporosis Sensory History: Denies: Hx Contacts or Glasses, Hx Hearing Aid Opthamlomology History: Denies: Hx Contacts or Glasses Neurological History: Denies: Hx Dementia, Hx Migraine, Hx Seizures, Hx Transient Ischemic Attacks (TIA) Psychiatric History: Reports: Hx Depression Denies: Hx Anxiety, Hx Panic Disorder, Hx Schizophrenia, Hx Bipolar Disorder - Cancer History Cancer Type, Location and Year: THYROID - REMOVED Hx Chemotherapy: No Hx Radiation Therapy: No - Surgical History Surgery Procedure, Year, and Place: Rt SHOULDER. THYROIDECTOMY - Immunization History Hx Pertussis Vaccination: No Immunizations Up to Date: Unable to Obtain/Confirm Infectious Disease History: No Infectious Disease History: Denies: Hx Hepatitis, Hx Human Immunodeficiency Virus (HIV), History Other Infectious Disease, Traveled Outside the [place] in Last 30 Days - Family History Known Family History: Positive: None, Cardiac Disease, Hypertension - Social History Occupation: Employed Part-time Lives: With Family Alcohol Use: Occasionally Alcohol Amount: once per week Hx Substance Use: No Substance Use Type: Reports: None Hx Tobacco Use: No Smoking Status (MU): Never Smoked Tobacco Have You Smoked in the Last Year: No Review of Systems Constitutional: Negative Negative: Fever, Chills, Fatigue, Skin Diaphoresis Cardiovascular: Negative Respiratory: Negative Negative: Abdominal Pain, Vomiting, Diarrhea, Nausea Positive: hematuria, other - left sided flank pain Positive: Other - purpura to the right wrist and hand. Negative: Rash Neurological: Negative Positive: Anxious All Other Systems Reviewed And Are Negative: Yes Physical Exam Triage Information Reviewed: Yes Vital Signs On Initial Exam: Initial Vitals Temp Pulse Resp BP Pulse Ox 97.6 F 102 20 155/108 100 08/11/17 06:01 08/11/17 06:01 08/11/17 06:01 08/11/17 06:01 08/11/17 06:01 Vital Signs Reviewed: Yes Appearance: Positive: Pain Distress Skin: Positive: Skin Color Reflects Adequate Perfusion, Purpura - right hand and wrist Head/Face: Positive: Normal Head/Face Inspection Neck: Positive: Supple, No Lymphadenopathy Respiratory/Lung Sounds: Positive: Clear to Auscultation, Breath Sounds Present Cardiovascular: Positive: RRR, Pulses are Symmetrical in both Upper and Lower Extremities Abdomen Description: Positive: Nontender, No Organomegaly, Soft, CVA Tenderness (L). Negative: Distended, Guarding Bowel Sounds: Positive: Present Musculoskeletal: Positive: Normal, Strength/ROM Intact. Negative: Fei Sign Left, Fei Sign Right, Edema Left, Edema Right Neurological: Positive: Speech Normal Psychiatric: Positive: Normal, Affect/Mood Appropriate AVPU Assessment: Alert Diagnostics - Vital Signs Vital Signs Temp Pulse Resp BP Pulse Ox 08/11/17 06:01 97.6 F 102 20 155/108 100 - Laboratory Pertinent Lab Values Are: WNL Except: - elevated PTT at 49.3 Result Diagrams: 08/11/17 06:47 08/11/17 06:45 Diagnostic Studies Comment: Aptt lower than previous draws Lab Statement: Any lab studies that have been ordered have been reviewed, and results considered in the medical decision making process. - CT No standard instances CT Interpretation: Positive (See Comments) CT Interpretation Completed By: Radiologist - IMPRESSION: Delayed images demonstrates a filling defect which appears to be soft tissue density at the left ureteropelvic junction. The remainder of the left ureter shows no evidence of obstruction. - Ultrasound No standard instances Ultrasound Interpretation: Positive (See Comments) Ultrasound Interpretation Completed By: Radiologist - Reviewed by Cecily Arauz PA-C: IMPRESSION: Perinephric fluid surrounding the left kidney with fullness of left renal collecting system. Left ureteral jet is identified. Re-Evaluation - Re-Evaluation First Eval Change: Improved - patients pain improved following medication Second Eval Change: Improved - notes to more frequent urination without hematuria/ no pain with urination/ patient agreeable to second CT Third Eval Change: Worse - near syncopal episode after attempting to use restroom, fluids given Fourth Eval Change: Improved - patient continues to be asymptomatic Disposition - Course Course Of Treatment: During the course of treatment, the patient is evaluated for left-sided flank pain without radiation. Denies fevers, sweats, chills. Denies any other symptoms of systemic illness. Physical examination reveals CVA tenderness without tenderness to the abdomen. RRR. Lungs CTA. Patient in some pain distress, non-diaphoretic, skin is warm. Purpura noted to the right hand and wrist. No other ecchymosis noted on skin exam. She is given Reglan 10 mg and morphine 4 mg for symptoms of nausea and pain. Vital signs are stable on arrival at 97.6, 102, 20. BP elevated on arrival at 155/108, on retake BP is 146/92. Aptt is 49.3, platelets 285 and fibrinogen of 220.2. These labs suggest bleeding complication is not the cause of the left sided pain as these are WNL. CT abd/pelvis obtained: There is mild left hydronephrosis and hydroureter with perinephric fluid surrounding the left kidney. Delayed nephrogram in the left kidney with delayed excretion. No definite calculi is noted although the possibility of obstructive lesion is not totally excluded. The right kidney demonstrates right renal cyst. Discussed these results with Dr. Moon and Dr. Parker (radiology). Dr. Parker recommends repeat CT abd/ pelvis without contrast to further assess excretion. Patient is agreeable to second CT. CT shows: delayed images demonstrates a filling defect which appears to be soft tissue density at the left ureteropelvic junction. The remainder of the left ureter shows no evidence of obstruction. Discussed case with Dr. Kingsley who recommends admit to hospitalist service and states labs appear to be within safe range for a minor procedure such as a stent. Discussed case with Dr. Barker who recommends a stent placement in the ureter if symptoms persist. Recommends admit to hospitalist service to assess pain levels in a few hours. If symptoms persist, will take to OR. Patient endorses recent hematuria while in ED with "passing of clots" and now denies any pain. Recommended still admission at this time d/t high risk. Patient proceeded to use the restroom and had a near syncopal episode with diaphoresis. 1L fluids given and feeling somewhat improved. US bladder performed to assess for ureteral jet flow. Spoke with Dr. Pelaez at 11:45a who accepts patient to hospitalist service. Called Dr. Mcclure, program technician at [facility] in [place] per patient request. He was unavailable so I spoke with Dr. Berman who recommends transfer to [facility] facility. [facility] does not have novoseven medication (this medication needed for possible complications related to stent placement). I have discussed this with patient who agrees to go by ambulance to [facility]. [facility] ambulance called and patient is awaiting transfer. - Differential Dx - Cardiopulmonary Differential Diagnoses - Cardiopulmonary: Other - Diagnoses Provider Diagnoses: UPJ (ureteropelvic junction) obstruction Is Visit Related: No - Physician Notifications Discussed Care Of Patient With: Piyush Barker Instructed by Provider To: Transfer Admit/Transition Orders Completed By ED Provider: Yes Reason For Transfer: Patient not appropriate for [facility]. - patient requires novoseven medication for possible complications related to procedure needed ( Left ureteral stent placement). - Critical Care Time Critical Care Time: 30-74 min Discharge - Sign-Out/Discharge Documenting (check all that apply): Discharge/Admit/Transfer - Discharge Plan Condition: Good Disposition: TRANS HIGHER LVL OF CARE FAC Referrals: Sena Santana MD [Primary Care Provider] - - Billing Disposition and Condition Condition: GOOD Disposition: Trans Higher Lvl of Care Fac
[2017-08-11 07:17] LABS: ABS Basophils 0 10^3/ul (0-0.2); ABS Eosinophils 0 10^3/ul (0-0.6); ABS Lymphocytes 0.2 10^3/ul (1.0-4.8); ABS Neutrophils 9.6 10^3/ul (1.5-7.7); ABS Nucleated RBC 0 10^3/ul; Eosinophil % 0 % (0-6); Hematocrit 32 % (35-47); Hemoglobin 11.2 g/dl (12.0-16.0); Lymphocyte % 2.2 % (25-47); Mean Corpuscular HGB Conc 35 g/dl (31-36); Mean Corpuscular Hemoglobin 28 pg (27-31); Mean Corpuscular Volume 81 fL (80-97); Mean Platelet Volume 6.7 um3 (7.4-10.4); Nucleated Red Blood Cells % 0.2; Platelet Count 285 10^3/ul (150-450); Red Blood Count 3.96 10^6/ul (4.00-5.40); Red Cell Distribution Width 20 % (10.5-15); White Blood Count 10.9 10^3/ul (3.5-10.8)
[2017-08-11 07:36] LABS: EGFR Non-African American 54.5 (>60)
[2017-08-11 08:10] LABS: INR 0.85 (0.77-1.02)
[2017-08-11] MEDS ORDERED: Iodixanol* (CONTRAST) 320 MG/ML 100 ML SDV IV ONE (08:19)
--- NOTE | 2017-08-11 08:32 | RAD ---
Indication: Lower left back pain. Contrast: Administered 101.2 ml of VISAPAQUE 320 mg/ml CT of the abdomen and pelvis was performed after IV contrast administration. No oral contrast was administered. Coronal and sagittal reconstructed images were obtained. The lung bases demonstrate no pleural fluid, nodules or masses. Heart is of normal size without evidence of pericardial effusion. The liver is normal in size. No focal lesions or intrahepatic ductal dilatation is noted. The gallbladder demonstrates no gallstones, pericholecystic fluid or wall thickening. The spleen is normal in size. No adrenal lesions are noted. The pancreas demonstrates no mass or pancreatic duct dilatation. The common duct is not dilated. No adrenal masses are noted. There is left hydronephrosis with perinephric fluid surrounding the left kidney. There is delay in excretion of left kidney. Mild hydroureter is noted although no definite evidence of a ureteral calculi is identified. The urinary bladder is unremarkable. The right kidney demonstrates a right renal cyst in the lower pole of the right kidney. This measures up to 2.4 cm. No evidence of abdominal aortic aneurysm is noted. No dilated loops of bowel are noted. There is diverticulosis without definite evidence of diverticulitis. No hernias are noted. The uterus demonstrates lobulated contours consistent with myomatous changes. IMPRESSION: There is mild left hydronephrosis and hydroureter with perinephric fluid surrounding the left kidney. Delayed nephrogram in the left kidney with delayed excretion. No definite calculi is noted although the possibility of obstructive lesion is not totally excluded. The right kidney demonstrates right renal cyst. Diverticulosis without definite evidence of diverticulitis.
[2017-08-11 09:10] LABS: Urine Appearance Clear; Urine Blood 3+ (Negative); Urine Color Straw; Urine Ketones Trace (Negative); Urine Protein Negative (Negative); Urine Specific Gravity 1.023 (1.010-1.030); Urine Urobilinogen Negative (Negative)
--- NOTE | 2017-08-11 10:44 | RAD ---
Indication: Left obstructive uropathy. Delayed images of the abdomen and pelvis was obtained to evaluate for ureteral obstruction. There is left hydronephrosis with delayed nephrogram of the left kidney. There is suggestion of a soft tissue obstructing lesion at the left ureteropelvic junction. The remainder of the left ureter is patent and extends to the ureterovesicular junction. Perinephric infiltration is noted of the left kidney. IMPRESSION: Delayed images demonstrates a filling defect which appears to be soft tissue density at the left ureteropelvic junction. The remainder of the left ureter shows no evidence of obstruction.
[2017-08-11] MEDS ORDERED: NS 0.9% 1000 ML* 1,000 ML IV ONE (11:50)
--- NOTE | 2017-08-11 13:47 | RAD ---
Indication: Left renal ultrasound. Real-time sonography of the left kidney was performed. A small amount of left perinephric fluid is noted. Fullness of left renal collecting system is noted. There is a left ureteral jet noted. IMPRESSION: Perinephric fluid surrounding the left kidney with fullness of left renal collecting system. Left ureteral jet is identified.
[2017-08-11 15:26] VITALS: BP 120/88
--- NOTE | 2017-08-12 00:15 | CONS ---
UROLOGY CONSULTATION: DATE OF CONSULT: 08/11/17 REQUESTING PHYSICIAN: Cecily Arauz in the emergency department. DIAGNOSES: 1. Gross hematuria. 2. Left hydronephrosis. HISTORY OF PRESENT ILLNESS: Valarie Camejo is a 41-year-old female, who has a history of acquired factor VIII inhibitor, who presented to the emergency room with a 7 to 8 day history of gross hematuria. She states that she initially had gross hematuria about 8 days ago and was not sure initially whether the bleeding was urinary or vaginal. She had seen Dr. Anderson on a couple of occasions last week and at that time, a decision was made to change the treatment regimen for her acquired factor VIII inhibitor from Cytoxan to a different infusion for the factor VIII inhibitor with the hope that this would help correct the bleeding. She, however, started having left- sided flank pain and at that time, presented to the emergency room. A CT scan was obtained, which initially revealed evidence of delayed excretion from the left collecting system. A CT was repeated, which showed what appears to be a filling defect in the area of the left ureteropelvic junction and left hydronephrosis with perinephric stranding. My evaluation of the films is that the filling defect may represent blood clot, although certainly a retrograde will need to be carried out at some point to rule out urothelial lesion that could be causing the filling defect. PAST MEDICAL HISTORY: Significant for: 1. Recent diagnosis of factor VIII inhibitor. 2. History of diverticulitis. 3. History of rheumatoid arthritis. 4. History of adrenal insufficiency. MEDICATIONS ON ADMISSION: 1. Cyclophosphamide 25 mg daily and also 150 mg daily. 2. Levothyroxine 62.5 mcg daily. 3. Nystatin suspension 5 mL 4 times a day. 4. Omeprazole 20 mg daily. 5. Prednisone 80 mg daily. ALLERGIES AND INTOLERANCES: SULFA and TOFACITINIB. PHYSICAL EXAMINATION: On examination, she is a pleasant mildly uncomfortable appearing lady. Blood pressure is 155/108, heart rate 102 per minute, regular, temperature 97.6, oxygen saturation 100% on room air. Cardiovascular Exam: Regular rate and rhythm. S1, S2. Lungs are clear bilaterally. Abdomen is soft with mild left flank tenderness. LABORATORY DATA: Review of labs reveals a white count of 10.9, hemoglobin and hematocrit are both low at 11.2 and 32 with a platelet count of 285. BUN and creatinine are 15 and 1.1 respectively. IMAGING: I reviewed the imaging studies including the 2 CT scans and an ultrasound, which was done subsequent to my initial evaluation of the patient. The CT scans on the delayed images showed a filling defect at the area of the left ureteropelvic junction with mild left hydronephrosis and some evidence of perinephric stranding around the left kidney. On the ultrasound, bilateral ureteral jets were identified. IMPRESSION AND PLAN: I had a detailed discussion with the patient and with the emergency room clinician regarding the options for management. I suspect that the flank pain and the filling defect is secondary to a blood clot in the collecting system and this may be related to spontaneous bleeding from the left renal collecting system. If the patient's pain persists, then she may require left stent insertion and I have discussed this with the patient and with the emergency room clinician. The main concern is her acquired factor VIII inhibitor situation and the emergency room staff has been in touch with the patient's clinical trainer at [facility] and their feeling is that she may require a medication (NovoSeven), which is not available at our hospital, and they may like to have the patient transferred to [facility] for this reason. I will be available if needed if the patient requires a left stent insertion and I have indicated this to emergency room staff and also to the patient. [id number]/[facility] #: [id number] SELWYN
--- NOTE | 2017-08-13 06:38 | PN ---
Progress Note - Progress Note Date of Service: 08/13/17 Note: patient urine grew strep group b 25-50,000 and normal thalia 1-10,000. not a significant culture so will not treat. patient was transferred to [facility].
== END 2017-08-11 17:00 | disposition short-term general hospital (02) ==
LOC: ED 05:58
DX: N13.5 Crossing vessel and stricture of ureter without hydronephrosis (principal); K57.90 Diverticulosis of intestine, part unspecified, without perforation or abscess without bleeding
CPT/HCPCS: 36415; 74176; 74177; 76775; 80053; 81003; 81015; 84702; 85025; 85384; 85610; 85730; 87077; 87086; 96374; 96375; 99285; J2270; J2765; Q9967

== ENCOUNTER 2018-01-27 17:18 | Emergency (ER) | payer BC ==
[2018-01-27 17:39] VITALS: BP 158/93
[2018-01-27] MEDS ORDERED: Amoxicillin/Clavulanate TAB* 875 MG PO ONE (18:35)
--- NOTE | 2018-01-27 18:42 | ED ---
Bite Injury/Animal - HPI Summary HPI Summary: Patient presents with a dog bite to left anterior thigh prior to arrival. She reports this dog is known to her and up-to-date with its vaccines. She however is unsure if her last tetanus vaccine - she did receive all childhood vaccines , simply unsure of if/when she's boosted tetanus. She has factor VIII inhibitor condition - the bleeding at the bite has stopped on its own. She does have multiple areas of open skin wounds and bruising. She reports she can ambulate and weight bear - just has muscle soreness w/ these activities. Denies numbness, tingling, weakness. She is concerned about infection and medications she can take as she has been on prednisone for the past few years and also receives an immunomodulating infusion routinely. She also has a h/o chemotherapy. She follows with her PCP Dr. Santana as well as a home health billing specialist and a neurologist. The neurologist monitors her for a history of stroke that she had after a medication. She reports she's had some new stroke-like symptoms recently and is waiting on insurance approval for an MRI. Her neurologist has seen her for these sx - no new sx since. - History of Current Complaint Chief Complaint: UCBiteInjury Stated Complaint: DOG BITE Time Seen by Provider: 01/27/18 17:40 Hx Obtained From: Patient, Family/Choreography Director - aunt Hx Last Menstrual Period: CURRENT (STATES THIS WEEK 5) Pain Intensity: 1 - Allergies/Home Medications Allergies/Adverse Reactions: Allergies Allergy/AdvReac Type Severity Reaction Status Date / Time tofacitinib [From Xeljanz] Allergy Severe Hives Verified 01/27/18 17:39 Sulfa (Sulfonamide Allergy Intermediate Hives Verified 01/27/18 17:39 Antibiotics) Home Medications: Home Medications Ascorbic Acid TAB* [Vitamin C TAB*] 500 mg PO DAILY 01/27/18 [History Confirmed 01/27/18] Iron 01/27/18 [History Confirmed 01/27/18] Levothyroxine TAB* [Synthroid TAB*] 100 mcg PO DAILY 01/27/18 [History Confirmed 01/27/18] Progesterone, Micronized [Progesterone] 100 mg PO DAILY 01/27/18 [History Confirmed 01/27/18] PMH/Surg Hx/FS Hx/Imm Hx Previously Healthy: No - currently undergoing neuro testing Endocrine/Hematology History: Reports: Hx Blood Disorders - Factor VIII inhibitor, Hx Thyroid Disease - Thyroid CA and thyroidectomy - h/o chemotherapy , Autoimmune Disease - reactions to multiple drugs in the past Denies: Hx Anticoagulant Therapy, Hx Diabetes Cardiovascular History: Denies: Hx Congestive Heart Failure, Hx Deep Vein Thrombosis, Hx Hypertension , Hx Myocardial Infarction, Hx Pacemaker/ICD Respiratory History: Denies: Hx Asthma, Hx Chronic Obstructive Pulmonary Disease (COPD), Hx Lung Cancer, Hx Pneumonia, Hx Pulmonary Embolism GI History: Reports: Hx Diverticulosis, Hx Gastroesophageal Reflux Disease Denies: Hx Gall Bladder Disease, Hx Gastrointestinal Bleed, Hx Ulcer, Hx Urosepsis History: Reports: Other Problems/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 Denies: Hx Dialysis, Hx Kidney Stones, Hx Renal Disease Musculoskeletal History: Reports: Hx Rheumatoid Arthritis Denies: Hx Osteoporosis Sensory History: Denies: Hx Contacts or Glasses, Hx Hearing Aid Opthamlomology History: Denies: Hx Contacts or Glasses Neurological History: Reports: Hx CVA - medication induced - follows w/ neurology Denies: Hx Dementia, Hx Migraine, Hx Seizures, Hx Transient Ischemic Attacks (TIA) Psychiatric History: Reports: Hx Depression Denies: Hx Anxiety, Hx Panic Disorder, Hx Schizophrenia, Hx Bipolar Disorder - Cancer History Cancer Type, Location and Year: THYROID - REMOVED Hx Chemotherapy: No Hx Radiation Therapy: No - Surgical History Surgery Procedure, Year, and Place: Rt SHOULDER. THYROIDECTOMY - Immunization History Immunizations Up to Date: Unable to Obtain/Confirm Infectious Disease History: No Infectious Disease History: Denies: Hx Hepatitis, Hx Human Immunodeficiency Virus (HIV), Hx of Known/ Suspected MRSA, History Other Infectious Disease, Traveled Outside the [place] in Last 30 Days - Family History Known Family History: Positive: Cardiac Disease, Hypertension - Social History Occupation: Employed Full-time Alcohol Use: None Alcohol Amount: once per week Hx Substance Use: No Substance Use Type: Reports: None Substance Use Comment - Amount & Last Used: daily @ [facility] Hx Tobacco Use: No Smoking Status (MU): Never Smoked Tobacco Have You Smoked in the Last Year: No Review of Systems Constitutional: Negative Negative: Fever, Chills, Fatigue Positive: no symptoms reported Positive: Myalgia. Negative: Arthralgia, Decreased ROM, Edema Skin: Other - lacerations Positive: Bruising Neurological: Negative Positive: Anxious - upset, concerned about current injury, healing process and potential ill outcomes All Other Systems Reviewed And Are Negative: Yes Physical Exam Triage Information Reviewed: Yes Vital Signs On Initial Exam: Initial Vitals Temp Pulse Resp BP Pulse Ox 99.6 F 125 16 158/93 98 01/27/18 17:31 18 17:31 01/27/18 17:31 01/27/18 17:31 01/27/18 17:31 Vital Signs Reviewed: Yes Appearance: Positive: Well-Appearing, Well-Nourished, Pain Distress - mild Skin: Positive: Warm, Skin Color Reflects Adequate Perfusion - 3 puncture/skin tears to Lt anterior thigh Head/Face: Positive: Normal Head/Face Inspection Eyes: Positive: EOMI ENT: Positive: Hearing grossly normal Respiratory/Lung Sounds: Positive: Breath Sounds Present Cardiovascular: Positive: Pulses are Symmetrical in both Upper and Lower Extremities Musculoskeletal: Positive: Normal, Strength/ROM Intact Neurological: Positive: Normal, Alert, Oriented to Person Place, Time Psychiatric: Positive: Anxious - tearful, anxious but cooperative, polite, pleasant Diagnostics - Vital Signs Vital Signs Temp Pulse Resp BP Pulse Ox 01/27/18 17:31 99.6 F 125 16 158/93 98 - Laboratory Lab Statement: Any lab studies that have been ordered have been reviewed, and results considered in the medical decision making process. Bite Injury Course/Dx - Course Course Of Treatment: Pt anxious about injury and tx plan based on previous medical issues including but not limited to med reactions and current immunosuppressed status. Pt contacted her home health billing specialist who confirmed taking augmentin would be okay. She will discuss tetanus vaccine tomorrow w/ her neurologist as she is currently being worked up for stroke-like sx and boostrix is contraindicated for neuro sx. Our facility does not carry tetanus toxoid but if she is cleared by her medical team to receive this vaccine, she will tomorrow. Wound care given and education provided to pt. She is aware and comfortable with plan. Aware of danger s/sx to watch for and will f/u in the next few days to recheck wound. - Diagnoses Provider Diagnosis: Dog bite of left thigh, Factor VIII inhibitor disorder Discharge - Sign-Out/Discharge Documenting (check all that apply): Patient Departure All imaging exams completed and their final reports reviewed: No Studies - Discharge Plan Condition: Stable Disposition: HOME Prescriptions: Amoxicillin/Clavulanate TAB* [Augmentin TAB 875*] 875 mg PO BID #20 tab Patient Education Materials: Animal Bite (ED) Referrals: Sena Santana MD [Primary Care Provider] - Additional Instructions: Gently wash wound daily with antibacterial soap and water - rinse well/irrigate wound daily with sterile water - pat dry and reapply clean dressing pad along with LORENZO wrap to help hold dressing in place. You may also apply warm Epsom salt compresses daily to aid in pain, swelling and drainage. Complete antibiotics as directed. Follow-up with PCP in 1-2 days for wound recheck. It is also important that you inquire tomorrow about tetanus toxoid vaccine and receive this ANJELICA as per recommendation of your medical team. * If you develop redness, swelling, streaking, purulent drainage, fevers or chills, seek medical attention or go to the emergency department. *If you develop bleeding that is not controlled with rest, ice, elevation and compression after 20 minutes, go to the ED. - Billing Disposition and Condition Condition: STABLE Disposition: Home
== END 2018-01-27 19:25 | disposition home or self-care (01) ==
LOC: UCEAST 17:18
DX: S71.152A Open bite, left thigh, initial encounter (principal); W54.0XXA Bitten by dog, initial encounter; Y92.9 Unspecified place or not applicable; D66 Hereditary factor VIII deficiency; Z92.21 Personal history of antineoplastic chemotherapy; Z88.3 Allergy status to other anti-infective agents; Z88.8 Allergy status to other drugs, medicaments and biological substances; Z85.850 Personal history of malignant neoplasm of thyroid
CPT/HCPCS: 99213; A9270-GY; G0463

== ENCOUNTER 2022-04-03 12:36 | Observation (INO) ==
[2022-04-03] MEDS ORDERED: Morphine 4 MG/ML VIAL (1 ml) IV ONE (13:40)
[2022-04-03] MEDS ORDERED: Lactated Ringers 1000 ml BAG 1,000 ML IV ONE ×2 (13:40→16:20)
[2022-04-03] MEDS ORDERED: Ondansetron 4 mg VIAL 2 MG/ML 2 ml VIAL IV ONE (13:41)
[2022-04-03 14:35] LABS: ABS Basophils 0.1 10^3/ul (0-0.2); ABS Eosinophils 0.2 10^3/ul (0-0.6); ABS Lymphocytes 1.5 10^3/ul (1.0-4.8); ABS Monocytes 1.5 10^3/ul (0-0.8); ABS Neutrophils 9.8 10^3/ul (1.5-7.7); Eosinophil % 1.4 %; Hematocrit 42 % (35-47); Hemoglobin 13.9 g/dL (12.0-16.0); Lymphocyte % 11.2 %; Mean Corpuscular HGB Conc 34 g/dL (31-36); Mean Corpuscular Hemoglobin 29 pg (27-31); Mean Corpuscular Volume 88 fL (80-97); Mean Platelet Volume 7.2 fL (7.4-10.4); Platelet Count 263 10^3/uL (150-450); Red Blood Count 4.73 10^6 /uL (3.70-4.87); Red Cell Distribution Width 14 % (10-15)
[2022-04-03 14:46] LABS: Urine Appearance Clear; Urine Bilirubin Negative (Negative); Urine Blood 1+ (Negative); Urine Color Straw; Urine Glucose Negative (Negative); Urine Ketones Negative (Negative); Urine Nitrite Negative (Negative); Urine Protein Negative (Negative); Urine Specific Gravity 1.004 (1.002-1.030); Urine Urobilinogen Negative (Negative)
[2022-04-03 15:08] LABS: HCG Pregnancy 1.03 mIU/mL
[2022-04-03 15:18] LABS: Urine Bacteria 1+ (Absent); Urine Red Blood Cell Trace(0-2/hpf) (Absent); Urine Squamous Epithelial Cell Present (Absent); Urine White Blood Cell Trace(0-5/hpf) (Absent)
[2022-04-03 15:19] LABS: TSH Ultra Thyroid Stim Horm 0.23 mcIU/mL (0.34-5.60)
[2022-04-03 15:21] LABS: Free T4 1.11 ng/dL (0.61-1.12)
[2022-04-03 15:29] LABS: Albumin 4.6 g/dL (3.2-5.2); Albumin/Globulin Ratio 2.1 (1-3); C Reactive Protein 26.57 mg/L (<8.01); Calcium 9.4 mg/dL (8.6-10.3); Creatinine, Serum 0.78 mg/dL (0.51-0.95); Globulin 2.2 g/dL (2-4); Total Bilirubin 0.5 mg/dL (0.2-1.0); Total Protein 6.8 g/dL (6.4-8.9); eGFR CKD-EPI 94.2 (>60)
[2022-04-03] MEDS ORDERED: Iohexol 350 (CONTRAST) 500 ML MDV IV ONE (15:35)
[2022-04-03] MEDS ORDERED: Piperacillin/Tazobac ADVAN 3.375 GM in NS 0.9% 100 ml BAG 100 ML IV ONE ×2 (16:26→16:45)
[2022-04-03] MEDS ORDERED: NS 0.9% 1000 ml BAG 1,000 ML IV SCH (16:45)
[2022-04-03] MEDS ORDERED: Zosyn per Pharmacy NOTE FOLLOW UP SCH (17:00)
[2022-04-03] MEDS ORDERED: Morphine 2 MG/ML SYRINGE IV PRN (17:03)
[2022-04-03] MEDS: Hydrocortisone INJ 100 MG/2ML 2 ML VIAL IV SCH (18:11)
[2022-04-03] MEDS: ZOSYN 3.375 GM Q8H per EXTENDED INFUSION IV SCH (23:08)
[2022-04-04] MEDS: Hydrocortisone INJ 100 MG/2ML 2 ML VIAL IV SCH ×2 (01:45→10:21)
[2022-04-04] MEDS: ZOSYN 3.375 GM Q8H per EXTENDED INFUSION IV SCH (05:59)
[2022-04-04 06:43] LABS: ABS Lymphocytes 0.7 10^3/ul (1.0-4.8); ABS Monocytes 0.5 10^3/ul (0-0.8); ABS Neutrophils 10.4 10^3/ul (1.5-7.7); Hematocrit 40 % (35-47); Hemoglobin 13.2 g/dL (12.0-16.0); Lymphocyte % 6.3 %; Mean Corpuscular HGB Conc 33 g/dL (31-36); Mean Corpuscular Hemoglobin 30 pg (27-31); Mean Corpuscular Volume 89 fL (80-97); Mean Platelet Volume 7.7 fL (7.4-10.4); Platelet Count 223 10^3/uL (150-450); Red Blood Count 4.48 10^6 /uL (3.70-4.87); Red Cell Distribution Width 14 % (10-15); White Blood Count 11.7 10^3/uL (3.5-10.8)
[2022-04-04 06:51] LABS: CO2 Carbon Dioxide 25 mmol/L (22-32); Calcium 8.6 mg/dL (8.6-10.3); Chloride 109 mmol/L (101-111); Sodium 138 mmol/L (135-145)
[2022-04-04 06:55] LABS: Anion Gap 4 mmol/L (2-11)
[2022-04-04 06:57] LABS: Blood Urea Nitrogen 7 mg/dL (6-24); Creatinine, Serum 0.68 mg/dL (0.51-0.95); Glucose 114 mg/dL (70-100)
[2022-04-04] MEDS ORDERED: Pantoprazole VIAL 40 MG VIAL IV SCH (09:00)
[2022-04-04] MEDS ORDERED: CAFFEINE PO ONE (10:00)
[2022-04-04] MEDS ORDERED: ACETAMINOPHEN PO ONE (10:00)
[2022-04-04] MEDS ORDERED: ASPIRIN PO ONE (10:00)
[2022-04-04 12:26] VITALS: BP 121/83
== END 2022-04-04 14:30 | disposition home or self-care (01) ==
LOC: ED 12:36 → EDHOLD 12:36 → MEDTELE 21:52
PROVIDERS: ADMIT Internal Medicine; ATTEND Internal Medicine